=== PATIENT | male | born 1960 ===

== ENCOUNTER 2018-08-21 20:25 | Inpatient (IN) | payer BC ==
[2018-08-21 20:35] VITALS: BMI 26.9
[2018-08-21] MEDS ORDERED: Sodium Chloride 0.9% 1,000 ML IV SCH (21:00)
[2018-08-21 21:04] LABS: BASO # 0.02 K/mm3 (0.0-2.0); BASO % 0.2 % (0.0-3.0); EOS % 0.5 % (1.5-5.0); GRAN # 5.94 (1.4-6.5); GRAN % 72.7 % (50.0-68.0); HEMOGLOBIN 13.7 g/dL (14.0-18.0); LYMPH # 1.5 (1.2-3.4); LYMPH % 17.7 % (22.0-35.0); MEAN CELL VOLUME 89.1 fl (80.0-105.0); MEAN CORPUSCULAR HEMOGLOBIN 30.4 pg (25.0-35.0); MEAN CORPUSCULAR HGB CONC 34.1 g/dl (31.0-37.0); MEAN PLATELET VOLUME 11.5 fl (7.0-11.0); MONO # 0.7 (0.1-0.6); MONO % 8.9 % (1.0-6.0); RBC 4.51 10^6/uL (3.5-6.1); RED CELL DISTRIBUTION WIDTH 13.9 % (11.5-14.5); WHITE BLOOD COUNT 8.2 10^3/ul (4.5-11.0)
[2018-08-21 21:11] LABS: INR 1.08; PARTIAL THROMBOPLASTIN TIME 23.1 Seconds (25.1-36.5); PROTHROMBIN TIME 12.3 SECONDS (9.4-12.5)
[2018-08-21 21:12] LABS: ALB/GLOB RATIO 1.4 (1.1-1.8); ALBUMIN 4.4 g/dL (3.0-4.8); ALT/SGPT 32 U/L (7-56); AST/SGOT 29 U/L (17-59); BLOOD UREA NITROGEN 15 mg/dL (7-21); CALCIUM 9.5 mg/dL (8.4-10.5); GFR NON-AFRICAN AMERICAN > 60
[2018-08-21 21:24] LABS: TROPONIN I < 0.01 ng/mL
--- NOTE | 2018-08-21 21:26 | ED PDOC ---
Arrival/HPI - General Chief Complaint: Dizziness/Lightheaded Time Seen by Provider: 08/21/18 20:34 Historian: Patient - History of Present Illness Narrative History of Present Illness (Text): 08/21/18 20:40 Micah Bolanos is a 58 year old male who presents to the ED complaining of sudden onset of dizziness today after helping his son move some items. Patient reports associated nausea, and vomiting. Patient denies any fever, chills, chest pain, shortness of breath, abdominal pain, headache, or any other complaints. Symptom Onset: Sudden Symptom Course: Unchanged Activities at Onset: Light Context: Exertion Past Medical History - Provider Review Nursing Documentation Reviewed: Yes - Infectious Disease Hx of Infectious Diseases: None - Psychiatric Hx Substance Use: No - Anesthesia Hx Anesthesia: No Family/Social History - Physician Review Nursing Documentation Reviewed: Yes Family/Social History: Unknown Family HX Smoking Status: Never Smoked Hx Alcohol Use: Yes Frequency of alcohol use: Socially Hx Substance Use: No Allergies/Home Meds Allergies/Adverse Reactions: Allergies No Known Allergies Allergy (Unverified 08/21/18 20:44) Review of Systems - Physician Review All systems were reviewed & negative as marked: Yes - Review of Systems Constitutional: Normal. absent: Fevers Eyes: Normal ENT: Normal Respiratory: Normal. absent: SOB, Cough Cardiovascular: Normal. absent: Chest Pain Gastrointestinal: Nausea, Vomiting. absent: Diarrhea Genitourinary Male: Normal. absent: Dysuria, Frequency, Hematuria, Urinary Output Changes Musculoskeletal: Normal. absent: Back Pain, Neck Pain Skin: Normal Neurological: Dizziness Endocrine: Normal Hemo/Lymphatic: Normal Psychiatric: Normal Physical Exam Vital Signs Reviewed: Yes Vital Signs Temp Pulse Resp BP Pulse Ox 08/21/18 23:56 96 H 18 144/93 H 98 08/21/18 20:33 98.3 F 80 18 133/77 100 Temperature: Afebrile Blood Pressure: Normal Pulse: Regular Respiratory Rate: Normal Appearance: Positive for: Well-Appearing, Non-Toxic, Comfortable Pain Distress: None Mental Status: Positive for: Alert and Oriented X 3 - Systems Exam Head: Present: Atraumatic, Normocephalic Pupils: Present: PERRL Extroacular Muscles: Present: EOMI Conjunctiva: Present: Normal Mouth: Present: Moist Mucous Membranes Neck: Present: Normal Range of Motion Respiratory/Chest: Present: Clear to Auscultation, Good Air Exchange. No: Respiratory Distress, Accessory Muscle Use Cardiovascular: Present: Regular Rate and Rhythm, Normal S1, S2. No: Murmurs Abdomen: No: Tenderness, Distention, Peritoneal Signs Back: Present: Normal Inspection Upper Extremity: Present: Normal Inspection. No: Cyanosis, Edema Lower Extremity: Present: Normal Inspection. No: Edema Neurological: Present: GCS=15, CN II-XII Intact, Speech Normal Skin: Present: Warm, Dry, Normal Color. No: Rashes Psychiatric: Present: Alert, Oriented x 3, Normal Insight, Normal Concentration Medical Decision Making ED Course and Treatment: 08/21/18 20:40 Impression: 58 year old male presents with sudden onset of dizziness, nausea, and vomiting today. Plan: -- CT Head w/o contrast -- EKG -- CXR -- Labs, troponin -- IV fluids -- Zofran -- Reassess and disposition Progress Notes: Reviewed EKG, NSR at [address]-segment elevations or depressions, no T-wave inversions, normal intervals. 08/21/18 21:45 Chest X-ray reviewed, shows no acute processes. 08/21/18 22:50 CT Head reviewed, shows: No acute intracranial abnormality. Electronically signed on Aug 21, 2018 22:39:12 EDT by: Finesse Hernandez M.D. 08/22/18 00:49 On reassessment, patient states he wants to go home, however when he stood up from the stretched he became dizzy/nauseous and began vomiting. I advised patient to stay in the hospital, patient is agreeable with plan. will need neuro workup and mri 08/22/18 01:[address] Ricketts, who is aware and agrees with plan. Accepts pt in to her service. Pt will go to [facility] observation for intractable dizziness and intractable vomiting. Requests Dr. Jimenez on consult. - Lab Interpretations Microbiology Results: Microbiology Results 08/23/18 10:50 Blood Blood Culture - Preliminary NO GROWTH AFTER 3 DAYS 08/23/18 10:30 Blood Blood Culture - Preliminary NO GROWTH AFTER 3 DAYS Lab Results: 08/23/18 05:30 08/23/18 05:30 Lab Results 08/23/18 10:18: C-React Prot High Sens 8.20 H 08/23/18 09:30: TENZIN Screen Negative 08/23/18 09:00: ESR 15 08/23/18 05:30: TSH 3rd Generation 0.69 08/23/18 05:30: Hemoglobin A1c 5.5 08/23/18 05:30: Sodium 139, Potassium 3.8, Chloride 106, Carbon Dioxide 25, Anion Gap 12, BUN 13, Creatinine 0.8, Est GFR ( Amer) > 60, Est GFR (Non- Af Amer) > 60, Random Glucose 94, Calcium 8.8, Phosphorus 3.1, Magnesium 2.1, Total Bilirubin 0.7, AST 30, ALT 35, Alkaline Phosphatase 41, Total Protein 6.7, Albumin 3.7, Globulin 3.0, Albumin/Globulin Ratio 1.2, Triglycerides 65, Cholesterol 174, LDL Cholesterol Direct 111, HDL Cholesterol 31 08/23/18 05:30: WBC 8.9, RBC 4.43, Hgb 13.1 L, Hct 39.8 L, MCV 89.8, MCH 29.6, MCHC 32.9, RDW 13.9, Plt Count 192, MPV 11.4 H, Gran % 73.2 H, Lymph % (Auto) 16.0 L, Loup % (Auto) 10.7 H, Eos % (Auto) 0.0 L, Baso % (Auto) 0.1, Gran # 6.49, Lymph # (Auto) 1.4, Loup # (Auto) 1.0 H, Eos # (Auto) 0.0, Baso # (Auto) 0.01 08/22/18 16:11: Triglycerides 49, Cholesterol 176, LDL Cholesterol Direct 113, HDL Cholesterol 34 08/21/18 20:55: PT 12.3, INR 1.08, APTT 23.1 L 08/21/18 20:55: WBC 8.2, RBC 4.51, Hgb 13.7 L, Hct 40.2 L, MCV 89.1, MCH 30.4, MCHC 34.1, RDW 13.9, Plt Count 176, MPV 11.5 H, Gran % 72.7 H, Lymph % (Auto) 17.7 L, Loup % (Auto) 8.9 H, Eos % (Auto) 0.5 L, Baso % (Auto) 0.2, Gran # 5.94, Lymph # (Auto) 1.5, Loup # (Auto) 0.7 H, Eos # (Auto) 0.0, Baso # (Auto) 0.02 08/21/18 20:55: Sodium 139, Potassium 4.1, Chloride 104, Carbon Dioxide 24, Anion Gap 16, BUN 15, Creatinine 0.9, Est GFR ( Amer) > 60, Est GFR (Non- Af Amer) > 60, Random Glucose 129 H, Calcium 9.5, Total Bilirubin 0.6, AST 29, ALT 32, Alkaline Phosphatase 54, Troponin I < 0.01, Total Protein 7.6, Albumin 4.4, Globulin 3.2, Albumin/Globulin Ratio 1.4 I have reviewed the lab results: Yes - RAD Interpretation Radiology Orders: 08/21/18 20:44 HEAD W/O CONTRAST [CT] Stat 08/21/18 20:45 CHEST PORTABLE [RAD] Stat 08/22/18 10:53 CAROTID & VERTEBRAL DUPLEX [US] Urgent 08/22/18 10:54 BRAIN WITHOUT CONTRAST [MRI] Stat Orthopaedic Nurse: Radiologist - EKG Interpretation Interpreted by ED Physician: Yes Type: 12 lead EKG - Medication Orders Current Medication Orders: Discontinued Medications Acetaminophen (Tylenol 325mg Tab) 650 mg PO Q4H PRN PRN Reason: Pain, Mild (1-3) Amlodipine Besylate (Norvasc) 10 mg PO DAILY [facility] Last Admin: 08/25/18 10:01 Dose: 10 mg MAR Blood Pressure Document 08/25/18 10:01 SOU (Rec: 08/25/18 10:01 [email or web address] Blood Pressure Blood Pressure (100/60-150/90) 130/87 Aspirin (Aspirin Chewable) 81 mg PO DAILY [facility] Aspirin (Aspirin) 325 mg PO DAILY [facility] Last Admin: 08/25/18 10:01 Dose: 325 mg Atorvastatin Calcium (Lipitor) 20 mg PO DIN [facility] Last Admin: 08/24/18 16:07 Dose: 20 mg Dexamethasone (Decadron Inj) 10 mg IVP Q8H [facility] Last Admin: 08/23/18 05:31 Dose: 10 mg IVP Administration Document 08/23/18 05:31 AP (Rec: 08/23/18 05:32 AP [id number]) Charges for Administration # of IVP Administrations 1 Dexamethasone (Decadron Inj) 4 mg IVP ONCE ONE Stop: 08/24/18 16:01 Last Admin: 08/24/18 16:07 Dose: 4 mg IVP Administration Document 08/24/18 16:07 GG (Rec: 08/24/18 16:07 GG [id number]) Charges for Administration # of IVP Administrations 1 Enoxaparin Sodium (Lovenox) 80 mg SC Q12H RAMON; Protocol Last Admin: 08/25/18 10:01 Dose: 80 mg Subcutaneous Administrations Document 08/25/18 10:01 SOUSV (Rec: 08/25/18 10:01 SOUSV B [id number]) Injection Site MAR Injection Site Left Abdomen Charges for Administration # of Subcutaneous Administrations 1 Sodium Chloride (Sodium Chloride 0.9%) 1,000 mls @ 80 mls/hr IV .[id number] RAMON Last Admin: 08/21/18 20:54 Dose: 80 mls/hr eMAR Start Stop Document 08/21/18 20:54 CNR (Rec: 08/21/18 20:55 CNR [id number]) Intravenous Solution Start Date 08/21/18 Start Time 20:55 End Date 08/22/18 End time 01:39 Total Infusion Time 284 Sodium Chloride (Sodium Chloride 0.9%) 1,000 mls @ 100 mls/hr IV .Q10H STA Stop: 08/22/18 11:11 Last Admin: 08/22/18 01:39 Dose: 100 mls/hr eMAR Start Stop Document 08/22/18 01:39 CNR (Rec: 08/22/18 01:39 CNR [id number]) Intravenous Solution Start Date 08/22/18 Start Time 01:39 Dexamethasone 2 mg/ Sodium (Chloride) 50.5 mls @ 150 mls/hr IV ONCE ONE Stop: 08/22/18 11:34 Last Admin: 08/22/18 12:21 Dose: 150 mls/hr eMAR Start Stop Document 08/22/18 12:21 LO (Rec: 08/22/18 12:21 LO [id number]) Intravenous Solution Start Date 08/22/18 Start Time 12:21 Meclizine HCl (Antivert) 25 mg PO STAT STA Stop: 08/21/18 23:48 Last Admin: 08/21/18 23:54 Dose: 25 mg Meclizine HCl (Antivert) 25 mg PO TID RAMON Last Admin: 08/23/18 09:17 Dose: 25 mg Meclizine HCl (Antivert) 25 mg PO TID PRN PRN Reason: Dizziness Metoclopramide HCl (Reglan) 10 mg IVP ONCE ONE Stop: 08/21/18 22:38 Last Admin: 08/21/18 22:50 Dose: 10 mg IVP Administration Document 08/21/18 22:50 CNR (Rec: 08/21/18 22:50 CNR [id number]) Charges for Administration # of IVP Administrations 1 Ondansetron HCl (Zofran Inj) 4 mg IVP STAT STA Stop: 08/21/18 20:47 Last Admin: 08/21/18 20:55 Dose: 4 mg IVP Administration Document 08/21/18 20:55 CNR (Rec: 08/21/18 20:55 CNR [id number]) Charges for Administration # of IVP Administrations 1 Ondansetron HCl (Zofran Inj) 4 mg IVP Q6H PRN PRN Reason: Nausea/Vomiting Last Admin: 08/22/18 08:26 Dose: 4 mg IVP Administration Document 08/22/18 08:26 LO (Rec: 08/22/18 08:27 LO [id number]) Charges for Administration # of IVP Administrations 1 Pantoprazole Sodium (Protonix Inj) 40 mg IVP ONCE STA Stop: 08/22/18 01:14 Last Admin: 08/22/18 01:39 Dose: 40 mg IVP Administration Document 08/22/18 01:39 CNR (Rec: 08/22/18 01:39 CNR [id number]) Charges for Administration # of IVP Administrations 1 Pantoprazole Sodium (Protonix Inj) 40 mg IVP DAILY RAMON Last Admin: 08/23/18 09:17 Dose: 40 mg IVP Administration Document 08/23/18 09:17 VS (Rec: 08/23/18 09:17 VS [id number]) Charges for Administration # of IVP Administrations 1 Pantoprazole Sodium (Protonix Ec Tab) 40 mg PO 0600 RAMON Last Admin: 08/24/18 05:09 Dose: 40 mg Warfarin Sodium (Coumadin) 6 mg PO 1800 RAMON; Protocol Last Admin: 08/24/18 18:58 Dose: 6 mg - Mindi Statement The provider has reviewed the documentation as recorded by the Mindi Caceres All medical record entries made by the Vickiibdanilo were at my direction and personally dictated by me. I have reviewed the chart and agree that the record accurately reflects my personal performance of the history, physical exam, medical decision making, and the department course for this patient. I have also personally directed, reviewed, and agree with the discharge instructions and disposition. Disposition/Present on Arrival - Present on Arrival Any Indicators Present on Arrival: No History of DVT/PE: No History of Uncontrolled Diabetes: No Urinary Catheter: No History of Decub. Ulcer: No History Surgical Site Infection Following: None - Disposition Have Diagnosis and Disposition been Completed?: Yes Diagnosis: Intractable vomiting Disposition: HOSPITALIZED Disposition Time: 00:49 Patient Problems: Current Active Problems Problem Status Onset Hypercoagulable state Acute Postoperative hemorrhage of skin following non-dermatologic procedure Acute Condition: FAIR
[2018-08-22] MEDS ORDERED: Sodium Chloride 0.9% 1,000 ML IV STA (01:12)
--- NOTE | 2018-08-22 08:34 | RAD ---
Date of service: 08/21/2018 HISTORY: dizzy COMPARISON: No prior. FINDINGS: LUNGS: No active pulmonary disease. PLEURA: No significant pleural effusion identified, no pneumothorax apparent. CARDIOVASCULAR: Normal. OSSEOUS STRUCTURES: No significant abnormalities. VISUALIZED UPPER ABDOMEN: Normal. OTHER FINDINGS: None. IMPRESSION: No interval acute cardiopulmonary disease appreciated.
--- NOTE | 2018-08-22 08:43 | CT ---
Date of service: 08/21/2018 PROCEDURE: CT HEAD WITHOUT CONTRAST. HISTORY: dizzy COMPARISON: None available. TECHNIQUE: Axial computed tomography images were obtained through the head/brain without intravenous contrast. Supplemental Coronal and Sagittal projectections created and reviewed. Radiation dose: Total exam DLP = 9112.18 mGy-cm. This CT exam was performed using one or more of the following dose reduction techniques: Automated exposure control, adjustment of the mA and/or kV according to patient size, and/or use of iterative reconstruction technique. FINDINGS: HEMORRHAGE: No intracranial hemorrhage. BRAIN: No mass effect or edema. No atrophy or chronic microvascular ischemic changes. VENTRICLES: Unremarkable. No hydrocephalus. CALVARIUM: Unremarkable. PARANASAL SINUSES: Unremarkable as visualized. No significant inflammatory changes. MASTOID AIR CELLS: Unremarkable as visualized. No inflammatory changes. OTHER FINDINGS: None. IMPRESSION: Concordant results (preliminary interpretation) provided by COLTON TORRES. Procedure Completed: 21:55 Preliminary (vRad) Report: Dictated and Authenticated: 22:39 Final Interpretation: 08:41. August 22, 2018.
--- NOTE | 2018-08-22 10:05 | CARD ---
APPROVED REPORT Date of service: 08/21/2018 EKG Measurement Heart [id number] <Conclusion> Normal sinus rhythm Normal ECG
[2018-08-22] MEDS ORDERED: Dexamethasone 2 MG in Sodium Chloride 0.9% 50 ML IV ONE (11:14)
--- NOTE | 2018-08-22 13:08 | CON ---
DATE: 08/22/2018 HISTORY OF PRESENT ILLNESS: A 58-year-old male, came with the complaint of sudden onset of dizziness and came to hospital. The patient has the nausea, vomiting. No spinning sensation. No double vision. Called to evaluate the patient. ALLERGIES: NO KNOWN DRUG ALLERGY. REVIEW OF SYSTEMS: Ten-point review of systems negative except dizziness. PHYSICAL EXAMINATION: VITAL SIGNS: Blood pressure 133/77. HEENT: Normocephalic, atraumatic. NECK: Supple. NEUROLOGIC: Alert, awake, orientated x3. No aphasia. Cranial nerves II through XII were tested. Pupils reactive. EOM intact. Visual field full. No facial asymmetry. Tongue midline. Motor examination: Moves all the extremities spontaneously. Strength 5/5. Tone normal. Deep tendon reflexes 1+. Both plantars are downgoing. Sensory appears intact. Cerebellar, gait deferred. IMPRESSION: A 58-year-old male, who presented to hospital with sudden onset of dizziness with nausea, vomiting. CAT scan of the head was done, which was reported negative. We will do MRI of the head with and without Gadolinium and carotid Doppler. The patient is on Zofran. Workup in progress. We will followup. Jim Jimenez MD
--- NOTE | 2018-08-22 13:30 | CP.PCM.CON ---
<JannieGinny gonsalezi - Last Filed: 08/22/18 14:44> History of Present Illness - History of Present Illness History of Present Illness: ENT consult note for Dr. Marcano Patient is a 58 year old male with past medical history of GERD presenting with intractable dizziness. Patient states that he was lifting boxes with his son yesterday when the dizziness started. He also complains of nausea, vomiting, and chronic tinnitus. He describes the dizziness as if the room is spinning. Patient admits to have seen Dr. Galloway several months ago for an earache and got his earwax removed. 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 Patient denies any changes in vision, falls, loss of consciousness, seizures, or muscle weakness. Patient further denies fevers, c hills, shortness of breath, chest pain, abdominal pain, diarrhea, or urinary symptoms. Otherwise, 12 point review of system was negative. PMH: GERD Past surgical history: Tonsillectomy Social History: occasional cigar smoker and drinks alcohol socially. Denies drug use. 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 Allergies:NKDA PMD: Dr. Ricketts Past Patient History - Infectious Disease Hx of Infectious Diseases: None - Past Social History Smoking Status: Never Smoked - CARDIAC Hx Cardiac Disorders: No - PULMONARY Hx Respiratory Disorders: No - NEUROLOGICAL Hx Neurological Disorder: No - HEENT Hx HEENT Problems: No - RENAL Hx Chronic Kidney Disease: No - ENDOCRINE/METABOLIC Hx Endocrine Disorders: No - HEMATOLOGICAL/ONCOLOGICAL Hx Blood Disorders: No - INTEGUMENTARY Hx Dermatological Problems: No - MUSCULOSKELETAL/RHEUMATOLOGICAL Hx Musculoskeletal Disorders: No Hx Falls: No - GASTROINTESTINAL Hx Gastrointestinal Disorders: No - GENITOURINARY/GYNECOLOGICAL Hx Genitourinary Disorders: No - PSYCHIATRIC Hx Substance Use: No - SURGICAL HISTORY Hx Surgeries: No - ANESTHESIA Hx Anesthesia: No Meds Home Medications: Home Medication List Medication Instructions Recorded Confirmed Type Meclizine [Antivert] 25 mg PO QID #12 tab 08/22/18 Rx Ondansetron ODT [Zofran ODT] 8 mg PO TID PRN #12 odt 08/22/18 Rx Allergies/Adverse Reactions: Allergies Allergy/AdvReac Type Severity Reaction Status Date / Time No Known Allergies Allergy Unverified 08/21/18 20:44 - Medications Medications: Current Medications Acetaminophen (Tylenol 325mg Tab) 650 mg PO Q4H PRN PRN Reason: Pain, Mild (1-3) Meclizine HCl (Antivert) 25 mg PO TID RAMON Ondansetron HCl (Zofran Inj) 4 mg IVP Q6H PRN PRN Reason: Nausea/Vomiting Last Admin: 08/22/18 08:26 Dose: 4 mg Pantoprazole Sodium (Protonix Inj) 40 mg IVP DAILY [facility] Last Admin: 08/22/18 11:20 Dose: 40 mg Physical Exam - Constitutional Appears: No Acute Distress, Other (Appears uncomfortable) - Head Exam Head Exam: ATRAUMATIC, NORMOCEPHALIC - Eye Exam Eye Exam: Normal appearance. absent: Nystagmus - ENT Exam ENT Exam: Mucous Membranes Dry, Normal External Ear Exam, TM's Normal Bilaterally. absent: Mucous Membranes Moist - Neck Exam Neck exam: Positive for: Normal Inspection. Negative for: Lymphadenopathy - Respiratory Exam Respiratory Exam: absent: Accessory Muscle Use, Respiratory Distress - Cardiovascular Exam Cardiovascular Exam: absent: Bradycardia, Tachycardia - GI/Abdominal Exam GI & Abdominal Exam: Soft. absent: Distended, Guarding, Tenderness - Extremities Exam Extremities exam: Positive for: normal inspection - Neurological Exam Neurological exam: Alert, CN II-XII Intact, Oriented x3 Additional comments: Nimo-Hallpike test was negative for nystagmus and vertigo - Psychiatric Exam Psychiatric exam: Normal Affect, Normal Mood - Skin Skin Exam: Dry, Intact, Normal Color, Warm Results - Vital Signs Recent Vital Signs: Last Vital Signs Temp 98.2 F 08/22/18 06:00 Pulse 76 08/22/18 06:00 Resp 18 08/22/18 06:00 BP 119/74 08/22/18 06:00 Pulse Ox 97 08/22/18 06:00 - Labs Result Diagrams: 08/21/18 20:55 08/21/18 20:55 Labs: Laboratory Results - last 24 hr 08/21/18 08/21/18 08/21/18 20:55 20:55 20:55 WBC 8.2 RBC 4.51 Hgb 13.7 L Hct 40.2 L MCV 89.1 MCH 30.4 MCHC 34.1 RDW 13.9 Plt Count 176 MPV 11.5 H Gran % 72.7 H Lymph % (Auto) 17.7 L Wilkes % (Auto) 8.9 H Eos % (Auto) 0.5 L Baso % (Auto) 0.2 Gran # 5.94 Lymph # (Auto) 1.5 Wilkes # (Auto) 0.7 H Eos # (Auto) 0.0 Baso # (Auto) 0.02 PT 12.3 INR 1.08 APTT 23.1 L Sodium 139 Potassium 4.1 Chloride 104 Carbon Dioxide 24 Anion Gap 16 BUN 15 Creatinine 0.9 Est GFR ( Amer) > 60 Est GFR (Non-Af Amer) > 60 Random Glucose 129 H Calcium 9.5 Total Bilirubin 0.6 AST 29 ALT 32 Alkaline Phosphatase 54 Troponin I < 0.01 Total Protein 7.6 Albumin 4.4 Globulin 3.2 Albumin/Globulin Ratio 1.4 Assessment & Plan - Assessment and Plan (Free Text) Assessment: Patient is a 58 year old male with PMH of GERD presenting with intractable dizziness. Plan: - Continue with decadron IV. - Continue with zofran and meclizine - Outpatient ENT follow up for VNG testing. Discussed case with Dr. Jeet Hendrickson DO PGY-1 <Ramana Marcano - Last Filed: 08/23/18 14:18> Meds - Medications Medications: Current Medications Acetaminophen (Tylenol 325mg Tab) 650 mg PO Q4H PRN PRN Reason: Pain, Mild (1-3) Amlodipine Besylate (Norvasc) 10 mg PO DAILY [facility] Last Admin: 08/23/18 11:19 Dose: 10 mg Aspirin (Aspirin) 325 mg PO DAILY [facility] Last Admin: 08/23/18 09:17 Dose: 325 mg Atorvastatin Calcium (Lipitor) 20 mg PO DIN [facility] Last Admin: 08/22/18 17:39 Dose: 20 mg Meclizine HCl (Antivert) 25 mg PO TID PRN PRN Reason: Dizziness Ondansetron HCl (Zofran Inj) 4 mg IVP Q6H PRN PRN Reason: Nausea/Vomiting Last Admin: 08/22/18 08:26 Dose: 4 mg Pantoprazole Sodium (Protonix Inj) 40 mg IVP DAILY [facility] Last Admin: 08/23/18 09:17 Dose: 40 mg Results - Vital Signs Recent Vital Signs: Last Vital Signs Temp 97.9 F 08/23/18 06:00 Pulse 64 08/23/18 09:41 Resp 20 08/23/18 06:00 BP 156/96 H 08/23/18 11:19 Pulse Ox 96 08/23/18 09:41 - Labs Result Diagrams: 08/23/18 05:30 08/23/18 05:30 Labs: Laboratory Results - last 24 hr 08/22/18 08/23/18 08/23/18 16:11 05:30 05:30 WBC 8.9 RBC 4.43 Hgb 13.1 L Hct 39.8 L MCV 89.8 MCH 29.6 MCHC 32.9 RDW 13.9 Plt Count 192 MPV 11.4 H Gran % 73.2 H Lymph % (Auto) 16.0 L Wilkes % (Auto) 10.7 H Eos % (Auto) 0.0 L Baso % (Auto) 0.1 Gran # 6.49 Lymph # (Auto) 1.4 Wilkes # (Auto) 1.0 H Eos # (Auto) 0.0 Baso # (Auto) 0.01 ESR Sodium 139 Potassium 3.8 Chloride 106 Carbon Dioxide 25 Anion Gap 12 BUN 13 Creatinine 0.8 Est GFR ( Amer) > 60 Est GFR (Non-Af Amer) > 60 Random Glucose 94 Hemoglobin A1c Calcium 8.8 Phosphorus 3.1 Magnesium 2.1 Total Bilirubin 0.7 AST 30 ALT 35 Alkaline Phosphatase 41 Total Protein 6.7 Albumin 3.7 Globulin 3.0 Albumin/Globulin Ratio 1.2 Triglycerides 49 65 Cholesterol 176 174 LDL Cholesterol Direct 113 111 HDL Cholesterol 34 31 TSH 3rd Generation 08/23/18 08/23/18 08/23/18 05:30 05:30 09:00 WBC RBC Hgb Hct MCV MCH MCHC RDW Plt Count MPV Gran % Lymph % (Auto) Wilkes % (Auto) Eos % (Auto) Baso % (Auto) Gran # Lymph # (Auto) Wilkes # (Auto) Eos # (Auto) Baso # (Auto) ESR 15 Sodium Potassium Chloride Carbon Dioxide Anion Gap BUN Creatinine Est GFR ( Amer) Est GFR (Non-Af Amer) Random Glucose Hemoglobin A1c 5.5 Calcium Phosphorus Magnesium Total Bilirubin AST ALT Alkaline Phosphatase Total Protein Albumin Globulin Albumin/Globulin Ratio Triglycerides Cholesterol LDL Cholesterol Direct HDL Cholesterol TSH 3rd Generation 0.69 Assessment & Plan - Assessment and Plan (Free Text) Assessment: MRI revealed embolic CVA Current treatment for embolic stroke (Central Vertigo) will reevaluate as outpatient should vertigo persist .
--- NOTE | 2018-08-22 14:08 | MRI ---
Date of service: 08/22/2018 PROCEDURE: MRI BRAIN WITHOUT CONTRAST HISTORY: severe dizziness COMPARISON: Noncontrast head CT 08/21/2018. TECHNIQUE: Multiplanar, multisequence MR images of the brain were obtained without intravenous contrast enhancement. FINDINGS: HEMORRHAGE: None DWI: Multifocal areas of restricted diffusion are small but widespread in the posterior fossa including the bilateral cerebellar hemispheres peripherally as well as limited vermian infarction, bilateral occipital lobes posteriorly and right thalamus indicating showing of embolic material across the bilateral MEAL MILLER and deep right MCA circulation. BRAIN PARENCHYMA: Limited chronic microangiopathy is identified within the bilateral frontal parietal and temporal lobes. Normal sulci and cisterns. No significant mass effect at this time including the basilar cisterns. Trace periventricular related chronic microangiopathy also evident. VENTRICLES: Unremarkable. No hydrocephalus. CRANIUM: Unremarkable. ORBITS: Grossly unremarkable. PARANASAL SINUSES/MASTOIDS: Clear VASCULAR SYSTEM: Skull base flow voids intact. OTHER FINDINGS: None. IMPRESSION: A numerous small infarcts are identified at the bilateral cerebellar hemispheres, right thalamus and bilateral occipital lobes compatible with embolic infarction process affecting the bilateral MEAL MILLER and deep right MCA branches. No significant mass effect. Limited chronic microangiopathy identified. Findings discussed with Dr. Ricketts with written down and read back verification 08/22/2018 2 o'clock p.m..
--- NOTE | 2018-08-22 14:52 | CP.PCM.PN ---
Subjective - Date & Time of Evaluation Date of Evaluation: 08/22/18 Time of Evaluation: 14:50 - Subjective Subjective: Patient evaluated bedside for NIHSS Stroke Scale.Patient states he feels weak and nauseas, denies any other complaints. Objective - Vital Signs/Intake and Output Vital Signs (last 24 hours): Temp Pulse Resp BP Pulse Ox 98.2 F 76 18 119/74 97 08/22/18 06:00 08/22/18 06:00 08/22/18 06:00 08/22/18 06:00 08/22/18 06:00 - Medications Medications: Current Medications Acetaminophen (Tylenol 325mg Tab) 650 mg PO Q4H PRN PRN Reason: Pain, Mild (1-3) Aspirin (Aspirin) 325 mg PO DAILY [facility] Atorvastatin Calcium (Lipitor) 20 mg PO DIN [facility]ON Meclizine HCl (Antivert) 25 mg PO TID [facility] Ondansetron HCl (Zofran Inj) 4 mg IVP Q6H PRN PRN Reason: Nausea/Vomiting Last Admin: 08/22/18 08:26 Dose: 4 mg Pantoprazole Sodium (Protonix Inj) 40 mg IVP DAILY [facility] Last Admin: 08/22/18 11:20 Dose: 40 mg - Labs Labs: 08/21/18 20:55 08/21/18 20:55 PT 12.3 SECONDS (9.4-12.5) 08/21/18 20:55 INR 1.08 08/21/18 20:55 APTT 23.1 Seconds (25.1-36.5) L 08/21/18 20:55 - Constitutional Appears: Non-toxic, No Acute Distress - Head Exam Head Exam: ATRAUMATIC, NORMAL INSPECTION, NORMOCEPHALIC - Eye Exam Eye Exam: EOMI, Normal appearance Pupil Exam: NORMAL ACCOMODATION - ENT Exam ENT Exam: Mucous Membranes Moist - Respiratory Exam Respiratory Exam: Clear to Ausculation Bilateral, NORMAL BREATHING PATTERN - Cardiovascular Exam Cardiovascular Exam: REGULAR RHYTHM, +S1, +S2 - GI/Abdominal Exam GI & Abdominal Exam: Soft - Neurological Exam Neurological Exam: Alert, Awake, Oriented x3 Neuro motor strength exam: Left Upper Extremity: 5, Right Upper Extremity: 5, Left Lower Extremity: 5, Right Lower Extremity: 5 Assessment and Plan - Assessment and Plan (Free Text) Plan: NIHSS Stroke Scale: 0
[2018-08-22 16:26] LABS: HDL CHOLESTEROL 34 mg/dL (29-60)
[2018-08-22 16:36] LABS: LDL CHOLESTEROL 113 mg/dL (0-129)
--- NOTE | 2018-08-22 17:19 | CON ---
DATE: 08/22/2018 Physician in addition with Neurology consultation done by Dr. Tony Pavon. Micah Bolanos is a 58-year-old man with history of hypertension who came in for intractable dizziness, found to have on the MRI of brain which was reviewed by me, numerous small infarcts bilateral cerebellar hemispheres, right thalamus and bilateral occipital lobes compatible with embolic infarction affecting the bilateral ABLE SEAMAN and deep right MCA branches. Carotid Dopplers done and results are pending. He would need to be on anticoagulation, most likely Eliquis 2.5 mg p.o. b.i.d. which can be started 24-48 hours after the onset of the acute stroke. Currently, he is having dizziness and headache, but no focal neurological deficits seen. He is on aspirin 325, currently Lipitor of 20, we will need to be on Lipitor of 80 mg for stroke prevention in addition to an anticoagulation like Eliquis. He will also need Cardiology for possible loop recorder and echocardiogram. He denies any illicit drug use or smoking. No EtOH abuse. We will need Hematology to evaluate for hypercoagulable workup and continue current present medical management, PT/OT assessment. Camden Jimenez MD
--- NOTE | 2018-08-22 17:21 | US ---
PROCEDURE: Bilateral carotid artery duplex ultrasound HISTORY: Carotid stenosis syncope PHYSICIAN(S): Adam Anne MD. TECHNIQUE: Duplex sonography and color-flow Doppler were used to evaluate the carotid bifurcations and limited segments of the vertebral arteries bilaterally. FINDINGS: There is mild smooth heterogeneous plaque noted at the carotid bifurcations bilaterally. The peak systolic velocity in the proximal right internal carotid artery is 46 cm/sec. This corresponds to a 20 to 39% proximal right ICA stenosis. Normal systolic velocities are noted in the proximal right external carotid artery. There is antegrade flow in the right vertebral artery. The peak systolic velocity in the proximal left internal carotid artery is 75 cm/sec. This corresponds to a 20 to 39% proximal left ICA stenosis. Normal systolic velocities are noted in the proximal left external carotid artery. There is antegrade flow in the left vertebral artery. IMPRESSION: 1. Bilateral 20-39% proximal ICA stenoses. 2. Antegrade flow in both vertebral arteries.
--- NOTE | 2018-08-22 20:21 | HP ---
DATE OF EXAM: 08/22/2018 HISTORY OF PRESENT ILLNESS: The patient is 58 years old, known to me from office practice. The patient states that his son was moving out, he was helping him to move out; when he was riding back home, he felt very dizzy and felt very nauseous since yesterday, so he had multiple episodes of vomiting, so he came to emergency room for further evaluation. Denies any headache. Complaining of feeling nauseous, light bothers. Has no appetite. No headache, no fever or chills. PAST MEDICAL HISTORY: Unremarkable. ALLERGIES: NOT ALLERGIC TO ANY MEDICATION. MEDICATIONS AT HOME: He was taking meclizine with no relief. SOCIAL HISTORY: He is , lives with his . Socially drinks. Denies smoking. REVIEW OF SYSTEMS: Significant for intractable nausea, especially when he moves his head and also complained of feeling nauseous. PHYSICAL EXAMINATION GENERAL: He is awake and alert, able to communicate. VITAL SIGNS: He is afebrile, pulse 76, respirations 18, blood pressure 119/74. LUNGS: Bilateral good airflow. No rhonchi or crackles. HEART: S1 and S2 audible. ABDOMEN: Soft, nontender. No rebound. No guarding. NEUROLOGICAL: The patient is awake and alert, able to communicate. Moves all extremities. Unable to move his head because of dizziness. LABORATORY DATA: WBC is 8.2, hemoglobin 13, hematocrit 40, platelets 176. PT 12.3. INR 1.08. Chemistry; sodium 139, potassium 4.1, chloride 104, CO2 of 24, BUN 15, creatinine 0.9, blood sugar of 129. LFTs are within normal limits. EKG shows normal sinus rhythm and normal EKG. CT scan of the head is unremarkable. X-ray of the chest is unremarkable. ASSESSMENT: 1. Intractable vomiting. 2. Severe vertigo. PLAN: We will continue the patient on meclizine. He has been started on dexamethasone. He is on Protonix. We will get carotid Doppler and MRI. Start him on liquid diet and Zofran as needed. We will follow up in the a.m. Carri Ricketts MD [facility] # [id number]
--- NOTE | 2018-08-23 00:41 | CON ---
DATE: 08/22/2018 CONSULTATION SERVICE: CARDIOLOGY DICTATING PHYSICIAN: Lan Trejo MD REASON FOR CONSULTATION: Embolic stroke, cardiac evaluation. 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 Denies any chest pain, denies any shortness of breath, denies any palpitation. That happened yesterday while he was lifting some boxes with his son. PAST MEDICAL HISTORY: Significant for complaint of chronic tinnitus, history of seen Dr. Galloway several months ago for ear ache and got the ear wax removed. PAST SURGICAL HISTORY: Significant for ear wax removed as mentioned above, tonsillectomy. SOCIAL HISTORY: Denies any smoking. Denies any history of alcohol abuse. Occasionally smokes cigar. Socially drinks. No history of substance abuse. 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 ALLERGIES: NO KNOWN DRUG ALLERGIES. CURRENT MEDICATIONS: None. REVIEW OF SYSTEMS: As per HPI. PHYSICAL EXAMINATION: VITAL SIGNS: Height of the patient is 5 feet 9 inches, weight of the patient is 185 pounds, body mass index 27 kg/sq m. Temperature afebrile, heart rate 64, blood pressure 119/74. HEENT: PERRLA. Extraocular muscles intact. NECK: Supple. No carotid bruits. No thyromegaly. CHEST: Clear to auscultation. HEART: S1 and S2 regular. ABDOMEN: Soft. EXTREMITIES: Clubbing and cyanosis negative. LABORATORY DATA: EKG shows normal sinus, within normal limits, heart rate 75. No acute ST-T changes noted. CAT scan of the head done yesterday at 9 p.m. that shows essentially unremarkable. Patient's later MRI of the brain done today around 11 o'clock that showed numerous small infarct identified in the bilateral cerebellar hemisphere, right thalamus and bilateral occipital lobe compatible with embolic infarction process, affecting the bilateral MED[employer] PROFESSOR and deep right middle cerebellar artery branch. Blood workup; WBC 8.3, hemoglobin 13.7, hematocrit 40.2, platelet count 176. Chemistry shows sodium 139, potassium 4, chloride 104, carbon dioxide 24, anion gap of 16, BUN 15, creatinine 0.9. Glucose 129, troponin 0.01. IMPRESSION: A 58-year-old male with no significant patient medical history except history of some chronic tinnitus, seen in the past Dr. Galloway, admitted with history of dizziness after lifting the box; nausea; vomiting. CAT scan was negative, but MRI shows multiple embolic stroke. RECOMMENDATIONS: Lipid profile, TSH, hemoglobin A1c. We will get echo with a bubble study to rule out patent foramen ovale. I will also put Holter, if nothing was rejected, can see the loop recorder to rule out any occult arrhythmia. Neuro workup is in progress. We will follow with you. Thank you, Dr. Ricketts, for providing us the opportunity in taking care of the patient, Micah Bolanos. Lan Trejo MD
[2018-08-23 06:29] LABS: BASO # 0.01 K/mm3 (0.0-2.0); BASO % 0.1 % (0.0-3.0); GRAN # 6.49 (1.4-6.5); GRAN % 73.2 % (50.0-68.0); HEMOGLOBIN 13.1 g/dL (14.0-18.0); LYMPH # 1.4 (1.2-3.4); MEAN CELL VOLUME 89.8 fl (80.0-105.0); MEAN CORPUSCULAR HEMOGLOBIN 29.6 pg (25.0-35.0); MEAN CORPUSCULAR HGB CONC 32.9 g/dl (31.0-37.0); MEAN PLATELET VOLUME 11.4 fl (7.0-11.0); MONO % 10.7 % (1.0-6.0); RBC 4.43 10^6/uL (3.5-6.1); RED CELL DISTRIBUTION WIDTH 13.9 % (11.5-14.5); WHITE BLOOD COUNT 8.9 10^3/ul (4.5-11.0)
[2018-08-23 06:48] LABS: ALB/GLOB RATIO 1.2 (1.1-1.8); ALBUMIN 3.7 g/dL (3.0-4.8); ALT/SGPT 35 U/L (7-56); AST/SGOT 30 U/L (17-59); BLOOD UREA NITROGEN 13 mg/dL (7-21); CALCIUM 8.8 mg/dL (8.4-10.5); GFR NON-AFRICAN AMERICAN > 60; HDL CHOLESTEROL 31 mg/dL (29-60)
[2018-08-23 06:50] LABS: LDL CHOLESTEROL 111 mg/dL (0-129)
--- NOTE | 2018-08-23 08:36 | CP.PCM.PN ---
Subjective - Date & Time of Evaluation Date of Evaluation: 08/23/18 Time of Evaluation: 06:40 - Subjective Subjective: Awake, no distress Reason for consultation and follow up:Cardiac evaluation of sudden dizziness, embolic stroke Seen and examined by me and Dr. Trejo Objective - Vital Signs/Intake and Output Vital Signs (last 24 hours): Temp Pulse Resp BP Pulse Ox 98.4 F 64 20 142/92 H 99 08/22/18 16:37 08/22/18 16:37 08/22/18 16:37 08/22/18 16:37 08/22/18 16:37 Intake and Output: 08/23/18 08/23/18 06:59 18:59 Intake Total 120 Output Total 800 Balance -680 - Medications Medications: Current Medications Acetaminophen (Tylenol 325mg Tab) 650 mg PO Q4H PRN PRN Reason: Pain, Mild (1-3) Aspirin (Aspirin) 325 mg PO DAILY [facility] Last Admin: 08/22/18 14:53 Dose: 325 mg Atorvastatin Calcium (Lipitor) 20 mg PO DIN [facility] Last Admin: 08/22/18 17:39 Dose: 20 mg Dexamethasone (Decadron Inj) 10 mg IVP Q8H [facility] Last Admin: 08/23/18 05:31 Dose: 10 mg Meclizine HCl (Antivert) 25 mg PO TID [facility] Last Admin: 08/22/18 17:40 Dose: 25 mg Ondansetron HCl (Zofran Inj) 4 mg IVP Q6H PRN PRN Reason: Nausea/Vomiting Last Admin: 08/22/18 08:26 Dose: 4 mg Pantoprazole Sodium (Protonix Inj) 40 mg IVP DAILY [facility] Last Admin: 08/22/18 11:20 Dose: 40 mg - Labs Labs: 08/23/18 05:30 08/23/18 05:30 PT 12.3 SECONDS (9.4-12.5) 08/21/18 20:55 INR 1.08 08/21/18 20:55 APTT 23.1 Seconds (25.1-36.5) L 08/21/18 20:55 - Constitutional Appears: No Acute Distress - Head Exam Head Exam: NORMOCEPHALIC - Eye Exam Eye Exam: Normal appearance - ENT Exam ENT Exam: Mucous Membranes Moist - Respiratory Exam Respiratory Exam: Clear to Ausculation Bilateral, NORMAL BREATHING PATTERN - Cardiovascular Exam Cardiovascular Exam: REGULAR RHYTHM, +S1, +S2 - GI/Abdominal Exam GI & Abdominal Exam: Soft, Normal Bowel Sounds Additional comments: denies nausea and vomiting - Extremities Exam Extremities Exam: Normal Capillary Refill - Neurological Exam Neurological Exam: Alert, Awake, Oriented x3 - Psychiatric Exam Psychiatric exam: Normal Affect - Skin Skin Exam: Dry, Warm Assessment and Plan - Assessment and Plan (Free Text) Assessment: A 58 year old male who came in to the ER due sudden onset of dizziness associated with nausea and vomiting. Denies chest pain or shortness of breath. He was helping his son move some items. No significant medical history except chronic tinnitus and was seen by Dr. Galloway. MRI of brain shows multiple embolic stroke. Cardiac consult for possible insertion of loop recorder to rule out for any arrhythmias. Will also order Echo to evaluate LV function rule out patent foramen ovale. Carotid studies unremarkable. Plan: For insertion of loop recorder today Keep NPO except medications For Echo today to evaluate LV function and rule out patent foramen ovale Heart rate and blood pressure stable TSH normal ASA 325 mg daily,Lipitor 20 mg daily,Decadron 10 mg every 8 hours Antivert 25m g TID Neuro on consult, work up in progress Continue current treatment Continue current medications Fall precaution Will start Eliquis after insertion of loop recorder Will follow up Plan and treatment discussed with Dr. Trejo
--- NOTE | 2018-08-23 10:44 | CON ---
DATE: 08/23/2018 REASON FOR CONSULTATION: Embolic stroke. HISTORY OF PRESENT ILLNESS: Mr. Bolanos is a 58-year-old male, presented to the ED with sudden onset of dizziness and lightheadedness. No nausea, no vomiting, no fever, no cough with expectoration. MRI of the brain showed embolic stroke multiple in bilateral posterior cerebral artery and right middle cerebral artery. He does not have cardiac history, no prior history of stroke. PAST MEDICAL HISTORY: No history of substance abuse, no history of smoking. FAMILY HISTORY: Noncontributory. No family history of stroke. ALLERGIES: NO KNOWN DRUG ALLERGIES. PERSONAL HISTORY: Never smoked. No history of alcohol abuse. REVIEW OF SYSTEMS: As per HPI. Rest of 12-point review of systems is reviewed and negative. PHYSICAL EXAMINATION GENERAL: Comfortable in bed, in no acute distress. VITAL SIGNS: Temperature 98.3, heart rate 80 per minute, blood pressure 130/77, pulse ox is 98% on room air. HEENT: No pallor. NECK: No lymphadenopathy. CHEST: Air entry present and equal bilaterally. No added sounds. CARDIOVASCULAR: S1 and S2 normal. No murmur, no gallop. ABDOMEN: Soft, nontender. No hepatosplenomegaly. EXTREMITIES: No edema. SKIN: No petechiae. No rash. NEUROLOGIC: Alert and oriented x3. No focal, sensory, or motor deficit. LABORATORY DATA: White count 8.2, hemoglobin 13.7, hematocrit 40.2, platelets 176. Sodium of 139, potassium of 4.1, BUN 15, creatinine of 0.9, glucose 129. CURRENT MEDICATIONS: Tylenol 650 every 4 hours p.r.n., aspirin 325 mg daily, Lipitor 20 mg daily, Decadron 10 mg every 8 hours, Antivert 25 mg p.o. t.i.d., Zofran p.r.n., Protonix 40 mg IV daily. ASSESSMENT AND PLAN: 1. Embolic stroke. 2. Lightheadedness, dizziness. 3. Vertigo. He developed acute embolic stroke. Cardiac workup is in progress. Dr. Trejo's note reviewed. Bubble study will be done including echocardiography and Holter monitoring. Source of emboli needs to be worked on. No signs of deep venous thrombosis. No prior history of deep venous thrombosis. No positive family history of stroke. Hypercoagulable workup ordered. TENZIN, factor V Leiden, lupus anticoagulant, MTHFR gene mutation, prothrombin gene mutation, protein C antigen and protein S antigen activity and level, antiphospholipid antibody panel ordered. He needs to be anticoagulated. We will start from tomorrow on Lovenox followed by Coumadin, newer anticoagulation are an option, but because of non-availability of antidote for them, long-term anticoagulation with them can be risky. Safest anticoagulation is Coumadin which has easy reversible agent available universally. Depending on the workup, we will provide further recommendation discussed with the patient at length. Thank you, Dr. Ricketts, for allowing us to participate in Mr. Bolanos's care. Lin Rudolph MD
--- NOTE | 2018-08-23 12:38 | PN ---
DATE: 08/23/2018 SUBJECTIVE: The patient is 58-year-old, seen and examined. He states he feels a little better, less dizzy. No headache. No nausea or vomiting. He states he feels hungry. PHYSICAL EXAMINATION: VITAL SIGNS: He is afebrile, pulse 67, respirations 20, blood pressure 156/96. LUNGS: Bilateral fair airflow. No rhonchi or crackle. HEART: S1 and S2 audible. ABDOMEN: Soft. Nontender. No rebound. No guarding. NEUROLOGICAL: The patient is awake, alert, oriented, communicative. LABORATORY EXAM: WBC is 8.9, hemoglobin 13, hematocrit 39.8, platelet 192. PT 12.3, INR 1.08. Chemistry: Sodium 139, potassium 3.8, chloride 106, CO2 of 25, BUN 13, creatinine 0.8, blood sugar of 95. LFTs are within normal limit. Echocardiogram is pending. Carotid Doppler is unremarkable. MRI of the brain shows numerous small infarct at the bilateral cerebellar hemisphere, right thalamus and bilateral occipital lobes compatible with embolic infarction. Affecting bilateral HOP WEIGHER and deep right MCA. ASSESSMENT: 1. Embolic occipital and cerebellar stroke leading to dizziness. 2. Hypertension. 3. History of recent tooth procedure where he had capping done and teeth cleaning done in first week of 06/2018 to rule out infectious etiology. PLAN: The patient is getting echocardiogram. The patient is going for loop recorder. We will continue on aspirin 325 daily and we will make meclizine p.r.n. The patient will be started on Coumadin and Lovenox. Discussed with the patient and his . The patient states he will train himself and we will make a discharge plan with Lovenox and Coumadin and will be followed as outpatient. Carri Ricketts MD
[2018-08-23] MEDS ORDERED: Lidocaine PF 2% (5 ml) Inj (For Cardiac Arrhy) ONE (13:46)
--- NOTE | 2018-08-23 14:13 | CPOSTOP ---
DATE: 08/23/2018 CARDIOVASCULAR LAB POST PROCEDURE NOTE DICTATING PHYSICIAN: Lan Trejo MD. BMET: Gricel ip/mosaic technician. TYPE OF ANESTHESIA: Local anesthesia. 2% lidocaine infiltrated in the chest. No conscious sedation given. PRE-PROCEDURE DIAGNOSIS: Embolic stroke in the cerebellum. PROCEDURE PERFORMED: Implantation of loop recorder (LINQ Reveal). FINDINGS: Embolic stroke. FINAL DIAGNOSES: Embolic stroke. Rule out arrhythmia. POST PROCEDURE CONDITION: Stable. ACCESS SITE: Left side of the chest. CLOSURE DEVICE: Dermabond applied. RADIATION DOSE: None. FLUORO TIME: None. Lan Trejo MD
--- NOTE | 2018-08-23 14:18 | CARDCATH ---
PROCEDURE DATE: 08/23/2018 CARDIAC ACETONE BUTTON PASTER PROCEDURE, IMPLANTATION OF LOOP RECORDER REVEAL ( LINQ) from [employer] INDICATION FOR THE PROCEDURE: Embolic stroke in multiple area of the cerebellum. Rule out arrhythmia. 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 CAT scan was negative for any bleed. Repeat MRI done that shows multiple area of embolic stroke. The patient was seen by Neurology, suggested loop recorder to rule out arrhythmia of cryptogenic stroke. DESCRIPTION OF PROCEDURE: The patient was brought to the research lab assistant, prepped and draped in standard sterile fashion. Left side of the chest was prepped in standard sterile fashion, then lidocaine 2% was given in the fourth intercostal space 1.5 cm away from the midsternal line. Then, small incision was made with Bard Stanley (BP) knife #11 and the loop recorder from [employer] reveal ( Linq) was injected. The puncture site was closed with Dermabond. The patient tolerated the procedure well and returned to floor in stable condition. Arrangement has been made for the transtelephonic recording. Further recommendations depending upon the hospital course. We will follow with you. Thank you, Dr. Ricketts for providing us the opportunity in taking care of the patient, Micah Bolanos. Lan Trejo MD cc: Carri Ricketts MD [facility]ITAL[facility]
--- NOTE | 2018-08-23 17:24 | CARD ---
APPROVED REPORT Date of service: 08/23/2018 EXAM: Two-dimensional and M-mode echocardiogram with Doppler and color Doppler. INDICATION CVA WITH EMBOLIC STROKE..BUBBLE STUDY..R/O PFO,LVFX 2D DIMENSIONS Left Atrium (2D)3.1 (1.6-4.0cm)IVSd1.1 (0.7-1.1cm) LVDd4.7 (3.9-5.9cm)PWd1.0 (0.7-1.1cm) LVDs3.4 (2.5-4.0cm)FS (%) 27.8 % LVEF (%)54.1 (>50%) M-Mode DIMENSIONS Aortic Root3.70 (2.2-3.7cm)Aortic Cusp Exc.1.90 (1.5-2.0cm) Aortic Valve AoV Peak Ktdgmbsp025.0cm/Venkat Peak GR.8mmHg Mitral Valve MV E Drmgjwvo80.6cm/sMV A Ptorpkfx88.2cm/sE/A ratio0.9 TDI Lateral E' Peak V11.10cm/sMedial E' Peak V7.99cm/sE/Lateral E'6.5 E/Medial E'9.0 Pulmonary Valve PV Peak Zufkqumd73.3cm/sPV Peak Grad.2mmHg Tricuspid Valve TR Peak Vximiztr527nf/sRAP [id number] Peak Gr.19mmHg [id number] LEFT VENTRICLE The left ventricle is normal size. There is normal left ventricular wall thickness. The left ventricular function is normal.EF-55% There is normal LV segmental wall motion. Transmitral Doppler flow pattern is Grade III-reversible restrictive diastolic dysfunction. No left ventricle thrombus noted on this study. There is no ventricular septal defect visualized. There is no left ventricular aneurysm. There is no mass noted in the left ventricle. RIGHT VENTRICLE The right ventricle is normal size. There is normal right ventricular wall thickness. The right ventricular systolic function is normal. ATRIA The left atrium size is normal. The right atrium size is normal. The interatrial septum is intact with no evidence for an atrial septal defect by color flow and bubble study. AORTIC VALVE The aortic valve is thickened but opens well. The aortic valve is mildly sclerotic. There is trace aortic regurgitation. There is no aortic valvular stenosis. There is no aortic valvular vegetation. MITRAL VALVE The mitral valve is thickened but opens well. Mitral regurgitation is trace. There is no mitral valve stenosis. There is no evidence of mitral valve prolapse. TRICUSPID VALVE The tricuspid valve leaflets are thickened , but open well. There is trace tricuspid regurgitation.RVSP-29 mmofHg There is no tricuspid valve stenosis. There is no tricuspid valve prolapse or vegetation. PULMONIC VALVE The pulmonary valve is normal in structure. There is no pulmonic valvular regurgitation. There is no pulmonic valvular stenosis. GREAT VESSELS The aortic root is normal in size. The ascending aorta is normal in size. The pulmonary artery is normal. The IVC is normal in size and collapses >50% with inspiration. PERICARDIAL EFFUSION There is no pleural effusion. There is no pericardial effusion. <Conclusion> Normal Chamber Size. EF-55%. trace MR/TR/ AR. RVSP-29 mmof hg. Intact Intra atrial septum by colorflow and bubble study.
--- NOTE | 2018-08-23 17:56 | PN ---
DATE: 08/23/2018 NEUROLOGY FOLLOWUP CHIEF COMPLAINT: Follow up for status post bilateral embolic infarcts. SUBJECTIVE: The patient was seen and examined at bedside. Has much less dizziness. Now able to focus more and move all extremities equally. He just had a loop recorder placed by Cardiology and has blood work for hematological workup, for hypercoagulable work and should be on Coumadin starting tomorrow for stroke prevention. He is on aspirin 81 mg daily. PAST MEDICAL HISTORY: History of hypertension. REVIEW OF SYSTEMS: Fourteen-point review of systems is negative except as per the HPI. FAMILY HISTORY: Noncontributory. ALLERGIES: NO KNOWN DRUG ALLERGIES. MEDICATIONS: Reviewed by nurses' reconciliation sheet. LABORATORY DATA: Sodium is 139, potassium 3.9, chloride 106, CO2 of 25, BUN of 13, creatinine 0.8, random glucose of 94, A1c is 5.5. LDL is 111, triglycerides 65, total cholesterol 174, HDL 71. PHYSICAL EXAMINATION: VITAL SIGNS: Temperature 97.9, pulse rate of 67, blood pressure 154/78, respiratory rate of 20, and oxygen saturation 97% by room air. GENERAL: The patient is sitting up in bed, in no acute distress. HEENT: Atraumatic, normocephalic. PERRLA. Extraocular muscles intact. NECK: Supple. No JVD, no adenopathy noted. LUNGS: Clear to auscultation. No adventitious sounds. HEART: S1, S2. Normal rate and rhythm. No murmurs, rubs, or gallops. ABDOMEN: Soft, nontender, and nondistended. Bowel sounds are present. EXTREMITIES: No clubbing. No cyanosis. Peripheral pulses 2+ felt bilaterally. NEUROLOGIC: The patient is alert and oriented to person, place, month, and year. Speech is fluent without any errors. Cranial nerves II through XII are intact. Motor: Moves all extremities equally. No dysmetria noted. Gait is deferred for now. ASSESSMENT AND PLAN: This is a 58-year-old male with history of hypertension who came for intractable dizziness, which was secondary to numerous small infarcts in the bilateral cerebral hemispheres, right thalamus, and bilateral occipital lobes, compatible with embolic infarction affecting the bilateral posterior cerebral artery and deep right middle cerebral artery branches. At this time, his carotid Doppler showed 20%-39% proximal internal carotid artery stenosis with antegrade flow in vertebral arteries. He is status post loop recorder to evaluate for arrhythmias causing his embolic infarcts and he will be undergoing a hypercoagulable workup by Hematology. At this time, we would recommend: 1. Starting Coumadin tomorrow to reach an INR between 2.5 to 3 in addition to his baby aspirin and Lipitor 40 mg for stroke prevention. 2. Follow up with Cardiology's recommendation and can follow up with me as an outpatient. 3. PT/OT evaluation. Camden Jimenez MD
--- NOTE | 2018-08-24 00:13 | CON ---
DATE: 07/23/2018 LOCATION: Room 366, bed 1. CHIEF COMPLAINT: Dizziness times one-day duration. HISTORY OF PRESENT ILLNESS: This is a 58-year-old male with no significant past medical history, who states that he had dizziness some time ago, it resolved. Yesterday, day before admission, he was admitted with dizziness. He denies any headaches. No chest pain. No fevers. No chills. No abdominal pain, diarrhea or constipation. The patient had an MRI of the head, which shows significant findings and embolic disease. An Infectious Disease consultation requested because of possible endocarditis with embolic event. REVIEW OF SYSTEMS: A 12-point review of systems was performed. There are no fevers. No chills. No chest pain. No shortness of breath or cough. No hemoptysis. No abdominal pain, diarrhea or constipation. No bright red blood per rectum. No melena, dysuria, frequency. No rash. No new joint pain. No back pain. No other symptoms other than the dizziness. PAST MEDICAL HISTORY: Noncontributory. PAST SURGICAL HISTORY: Noncontributory. ALLERGIES: THE PATIENT HAS NO KNOWN ALLERGIES. SOCIAL HISTORY: He lives with his . 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 Works in [employer]. He did have dental work done on 06/05/2018. It was extensive dental work, which required placement of a cap. He originally started having a root canal, and eventually had a cap done. He has no pet exposure. No recent travel. Last travel was to [facility] 2 years ago. MEDICATIONS AT HOME: Include Zofran and Antivert, which he has recently taken for his dizziness. PHYSICAL EXAMINATION: VITAL SIGNS: Temperature is 98, blood pressure is 140/90, respiratory rate of 20, heart rate of 64. His oxygen saturation is 99 on room air. HEENT: Examination of HEENT is unremarkable. The pupils are equal, reactive to light and accommodation. Extraocular muscles intact. Conjunctivae are pink. Sclerae are nonicteric. NECK: Supple. LUNGS: Have decreased breath sounds. HEART: Normal S1 and S2. ABDOMEN: Soft. LABORATORY DATA: Laboratory examination reveals a white count of 8.2, hemoglobin of 13, platelets of 176. Coagulations are noted. The chemistries reveal a BUN of 13, creatinine of 0.8, glucose of 129, hemoglobin A1c of 5.5. LFTs are normal. Triglycerides are normal. Alk phos is normal. TSH is normal. The patient had an MRI of the brain, which is consistent with an embolic infarction. Dr. Kilpatrick has read the MRI as numerous small infarcts identified in bilateral cerebellar hemispheres. Right thalamus and bilateral occipital lobes compatible with embolic infarction, process affecting bilateral [employer] and deep right MCA branches. Dr. Ricketts's note is reviewed. Dr. Rudolph's consultation is reviewed. ASSESSMENT AND PLAN: A 58-year-old male with no medical history, who was admitted with dizziness, who had dental work done in 05/2018, now admitted with dizziness and positive findings on MRI of embolic infarction. Must rule out underlying endocarditis whether related to the tooth or not. At this point, the patient has no fevers, no chills and clinically stable. He has no weakness. We will hold off on the antibiotics. We will order blood cultures x2. We will order sed rate C-reactive protein. Discuss an echocardiogram with Dr. Trejo who is on the case. We will make further recommendations pending initial workup and we will also order an human immunodeficiency virus because of his age pending echocardiogram finding and culture results. May need further workup as far as culture negative endocarditis. I will also ask Microbiology to hold the blood cultures x3 weeks for the . Since the patient was in [facility], brucellosis is possibility if all the initial workup is negative and if the workup for culture negative endocarditis including brucellosis, which may present without any fevers. We will follow closely with you. Edi Grissom MD
[2018-08-24] MEDS ORDERED: Pantoprazole 40 mg EC Tab PO SCH (06:00)
--- NOTE | 2018-08-24 07:39 | CP.PCM.PN ---
Subjective - Date & Time of Evaluation Date of Evaluation: 08/24/18 Time of Evaluation: 06:40 - Subjective Subjective: Awake, no distress Reason for consultation and follow up:Cardiac evaluation of sudden dizziness, embolic stroke Seen and examined by me and Dr. Trejo Objective - Vital Signs/Intake and Output Vital Signs (last 24 hours): Temp Pulse Resp BP Pulse Ox 98.4 F 61 20 144/98 H 97 08/23/18 18:00 08/24/18 06:00 08/23/18 18:00 08/23/18 18:00 08/23/18 18:00 Intake and Output: 08/24/18 08/24/18 06:59 18:59 Intake Total 240 Output Total 200 Balance 40 - Medications Medications: Current Medications Acetaminophen (Tylenol 325mg Tab) 650 mg PO Q4H PRN PRN Reason: Pain, Mild (1-3) Amlodipine Besylate (Norvasc) 10 mg PO DAILY [facility] Last Admin: 08/23/18 11:19 Dose: 10 mg Aspirin (Aspirin) 325 mg PO DAILY [facility] Last Admin: 08/23/18 09:17 Dose: 325 mg Atorvastatin Calcium (Lipitor) 20 mg PO DIN [facility] Last Admin: 08/23/18 17:37 Dose: 20 mg Meclizine HCl (Antivert) 25 mg PO TID PRN PRN Reason: Dizziness Ondansetron HCl (Zofran Inj) 4 mg IVP Q6H PRN PRN Reason: Nausea/Vomiting Last Admin: 08/22/18 08:26 Dose: 4 mg Pantoprazole Sodium (Protonix Ec Tab) 40 mg PO 0600 [facility] Last Admin: 08/24/18 05:09 Dose: 40 mg - Labs Labs: 08/23/18 05:30 08/23/18 05:30 PT 12.3 SECONDS (9.4-12.5) 08/21/18 20:55 INR 1.08 08/21/18 20:55 APTT 23.1 Seconds (25.1-36.5) L 08/21/18 20:55 - Constitutional Appears: No Acute Distress - Eye Exam Eye Exam: Normal appearance - ENT Exam ENT Exam: Mucous Membranes Moist - Respiratory Exam Respiratory Exam: Clear to Ausculation Bilateral, NORMAL BREATHING PATTERN - Cardiovascular Exam Cardiovascular Exam: +S1, +S2 Additional comments: left chest loop recorder - GI/Abdominal Exam GI & Abdominal Exam: Soft, Normal Bowel Sounds - Extremities Exam Extremities Exam: Normal Capillary Refill - Neurological Exam Neurological Exam: Alert, Awake, Oriented x3 - Psychiatric Exam Psychiatric exam: Normal Affect - Skin Skin Exam: Dry, Warm Assessment and Plan - Assessment and Plan (Free Text) Assessment: 58 year old male who came in to the ER due sudden onset of dizziness associated with nausea and vomiting. Denies chest pain or shortness of breath. He was helping his son move some items. No significant medical history except chronic tinnitus and was seen by Dr. Galloway. MRI of brain shows multiple embolic stroke. Cardiac consult for possible insertion of loop recorder to rule out for any arrhythmias. Will also order Echo to evaluate LV function rule out patent foramen ovale. Carotid studies unremarkable. Status post loop recorder insertion yesterday. Plan: Feels okay, no distress Status post insertion of loop recorder Echo done-[id number]%,normal chamber size, Trace MR/TR/AR RVSP 29 mmHg, Intact intra atrial septum. Heart rate and blood pressure stable Cardiac status stable ASA 325 mg daily,Lipitor 20 mg daily,Decadron 10 mg every 8 hours Antivert 25m g TID Neuro on consult Anticoagulation per hematology-(coumadin) Continue current treatment Continue current medications Fall precaution Will follow up Plan and treatment discussed with Dr. Trejo
--- NOTE | 2018-08-24 08:34 | PN ---
DATE: 08/23/2018 REASON FOR DICTATION: Addendum to the initial progress note dictated by our nurse practitioner, Dorothy Montelongo. REASON FOR ADDENDUM: Discussed with the patient. Discussed with the patient's . Chart reviewed. Consultation from Neurology reviewed. Suggested loop recorder. We will get echo with a bubble study today. The patient is awaiting Holter schedule for loop recorder placed. Further recommendations depending upon the hospital course. We will follow with you. The patient is supposed to get Eliquis, seen by Hematology who suggested Coumadin and Lovenox as a bridge. We will follow as per the recommendation. Thank you, Dr. Ricketts, for proving us the opportunity in taking care of the patient, Miach Bolanos. Lan Trejo MD
[2018-08-24] MEDS: Enoxaparin 80 mg Syringe SC SCH ×2 (12:22→23:12)
--- NOTE | 2018-08-24 15:10 | CT ---
Date of service: 08/24/2018 PROCEDURE: CT HEAD WITHOUT CONTRAST. HISTORY: S/P Stroke COMPARISON: MRI brain dated 08/22/2018; CT head dated 08/21/2018. TECHNIQUE: Axial computed tomography images were obtained through the head/brain without intravenous contrast. Radiation dose: Total exam DLP = 1007.1 mGy-cm. This CT exam was performed using one or more of the following dose reduction techniques: Automated exposure control, adjustment of the mA and/or kV according to patient size, and/or use of iterative reconstruction technique. FINDINGS: HEMORRHAGE: No intracranial hemorrhage. BRAIN: Interval decreased attenuation in both thalami, inferomedial bilateral occipital lobes and most predominantly in both cerebellar hemispheres, right more than left. VENTRICLES: Unremarkable. No hydrocephalus. CALVARIUM: Unremarkable. PARANASAL SINUSES: Unremarkable as visualized. No significant inflammatory changes. MASTOID AIR CELLS: Unremarkable as visualized. No inflammatory changes. OTHER FINDINGS: None. IMPRESSION: Increased edema and evolution of bilateral subacute thalamic, but septal and cerebellar infarctions.
[2018-08-24] MEDS ORDERED: Dexamethasone 4 mg/1 ml IVP ONE (16:00)
--- NOTE | 2018-08-24 16:01 | PN ---
DATE: 08/24/2018 This note is an addendum to the initial progress note dictated by the nurse practitioner. REASON FOR CONSULTATION AND FOLLOWUP: Cardiac evaluation for embolic stroke. The patient yesterday underwent loop recorder implantation. Echo showed with the bubble study no atrial septal defect or PFO, intact interatrial septum. Initially, the patient underwent a loop recorder and arrangement has been made for transtelephonic as well as on-site for monitoring to rule out any occult arrhythmia. Initial plan was to start Eliquis, but as recommended by invoice classification clerk, start Lovenox as bridge and then Coumadin, so we leave up to invoice classification clerk to monitor the anticoagulation. The patient is cleared to be discharged from our Cardiology point of view and appointment was given to follow up in two weeks. Discussed with the and office number was given to follow up as an outpatient in two weeks. The patient is okay to be discharged from Cardiology point of view once the anticoagulation issue has been addressed and started. Thank you, Dr. Ricketts, for providing us the opportunity in taking care of the patient, Micah Bolanos. Lan Trejo MD
--- NOTE | 2018-08-24 16:49 | CP.PCM.PN ---
Subjective - Date & Time of Evaluation Date of Evaluation: 08/24/18 Time of Evaluation: 10:20 - Subjective Subjective: Comfortable in bed, no fevers. Objective - Vital Signs/Intake and Output Vital Signs (last 24 hours): Temp Pulse Resp BP Pulse Ox 97.3 F L 61 20 133/91 H 96 08/24/18 06:00 08/24/18 10:00 08/24/18 06:00 08/24/18 09:14 08/24/18 06:00 Intake and Output: 08/24/18 08/24/18 06:59 18:59 Intake Total 240 Output Total 200 Balance 40 - Medications Medications: Current Medications Acetaminophen (Tylenol 325mg Tab) 650 mg PO Q4H PRN PRN Reason: Pain, Mild (1-3) Amlodipine Besylate (Norvasc) 10 mg PO DAILY [facility] Last Admin: 08/24/18 09:14 Dose: 10 mg Aspirin (Aspirin) 325 mg PO DAILY [facility] Last Admin: 08/24/18 09:14 Dose: 325 mg Atorvastatin Calcium (Lipitor) 20 mg PO DIN [facility] Last Admin: 08/23/18 17:37 Dose: 20 mg Enoxaparin Sodium (Lovenox) 80 mg SC Q12H [facility]; Protocol Last Admin: 08/24/18 12:22 Dose: 80 mg Meclizine HCl (Antivert) 25 mg PO TID PRN PRN Reason: Dizziness Ondansetron HCl (Zofran Inj) 4 mg IVP Q6H PRN PRN Reason: Nausea/Vomiting Last Admin: 08/22/18 08:26 Dose: 4 mg Pantoprazole Sodium (Protonix Ec Tab) 40 mg PO 0600 [facility] Last Admin: 08/24/18 05:09 Dose: 40 mg Warfarin Sodium (Coumadin) 6 mg PO 1800 [facility]; Protocol - Labs Labs: 08/23/18 05:30 08/23/18 05:30 PT 12.3 SECONDS (9.4-12.5) 08/21/18 20:55 INR 1.08 08/21/18 20:55 APTT 23.1 Seconds (25.1-36.5) L 08/21/18 20:55 - Constitutional Appears: Chronically Ill - Head Exam Head Exam: NORMAL INSPECTION - Respiratory Exam Respiratory Exam: Decreased Breath Sounds - Cardiovascular Exam Cardiovascular Exam: +S1, +S2 - GI/Abdominal Exam GI & Abdominal Exam: Soft. absent: Tenderness Assessment and Plan - Assessment and Plan (Free Text) Plan: Assessment CVA, R/O embolic R/O bacteremia, no vegetations noted on 2D echo in this patient who had dental work in May 2018 Plan follow up final blood cx results; [facility] cx for up to 2 weeks to see if bacteria grow reviewed 2D echo which does not show vegetations will monitor clinically
--- NOTE | 2018-08-24 22:07 | PN ---
DATE: 08/24/2018 SUBJECTIVE: The patient is 58 years old, seen and examined, lying in bed. Seems to be comfortable. Less dizziness. Able to tolerate food. Had loop recorder placed yesterday. PHYSICAL EXAMINATION: VITAL SIGNS: He is afebrile, pulse 62, respirations 20, blood pressure 138/69. LUNGS: Bilateral fair airflow. No rhonchi or crackle. HEART: S1 and S2 audible. ABDOMEN: Soft. Nontender. No rebound. No guarding. NEUROLOGICAL: The patient is awake, alert, oriented, communicative. LABORATORY EXAM: RPR is negative. HIV is negative. TENZIN screen is unremarkable. CT scan of the head was done shows increased edema and evolution of bilateral subacute thalamic infarct with septal and cerebellar infarction. Echocardiogram was done that shows normal chamber, intact intraatrial septum by color flow and bubble study. Ejection fraction is 55%. ASSESSMENT: 1. Bilateral thalamic and cerebellar stroke, probably embolic phenomena. Coagulation workup is in progress. The patient has loop recorder placed and has been started on p.o. Coumadin and has been started on Lovenox. 2. Dizziness. Seems to be resolved. PLAN: The patient is on meclizine as needed. We will keep him on aspirin. He was given Coumadin 6 mg today. Continue him on Lovenox 80 mg every [address] Jimenez and Dr. Rudolph. We will continue him on 6 mg of Coumadin. He will be trained to inject himself with Lovenox and probably he will be discharged in the a.m. Carri Ricketts MD
[2018-08-25 07:57] VITALS: BP 130/87; PULSE 62; RESP 20; TEMP 98.2; O2SAT 98
[2018-08-25] MEDS: Enoxaparin 80 mg Syringe SC SCH (10:01)
--- NOTE | 2018-08-25 13:00 | CP.PCM.PN ---
Subjective - Date & Time of Evaluation Date of Evaluation: 08/25/18 Time of Evaluation: 12:30 - Subjective Subjective: No fevers, not in distress, no chest pain, no headache. Objective - Vital Signs/Intake and Output Vital Signs (last 24 hours): Temp Pulse Resp BP Pulse Ox 98.2 F 62 20 130/87 98 08/25/18 06:00 08/25/18 06:00 08/25/18 06:00 08/25/18 10:01 08/25/18 06:00 Intake and Output: 08/25/18 08/25/18 06:59 18:59 Intake Total 800 360 Output Total 740 Balance 800 -380 - Medications Medications: Current Medications Acetaminophen (Tylenol 325mg Tab) 650 mg PO Q4H PRN PRN Reason: Pain, Mild (1-3) Amlodipine Besylate (Norvasc) 10 mg PO DAILY [facility] Last Admin: 08/25/18 10:01 Dose: 10 mg Aspirin (Aspirin) 325 mg PO DAILY [facility] Last Admin: 08/25/18 10:01 Dose: 325 mg Atorvastatin Calcium (Lipitor) 20 mg PO DIN [facility] Last Admin: 08/24/18 16:07 Dose: 20 mg Enoxaparin Sodium (Lovenox) 80 mg SC Q12H [facility]; Protocol Last Admin: 08/25/18 10:01 Dose: 80 mg Meclizine HCl (Antivert) 25 mg PO TID PRN PRN Reason: Dizziness Ondansetron HCl (Zofran Inj) 4 mg IVP Q6H PRN PRN Reason: Nausea/Vomiting Last Admin: 08/22/18 08:26 Dose: 4 mg Warfarin Sodium (Coumadin) 6 mg PO 1800 [facility]; Protocol Last Admin: 08/24/18 18:58 Dose: 6 mg - Labs Labs: 08/23/18 05:30 08/23/18 05:30 PT 12.3 SECONDS (9.4-12.5) 08/21/18 20:55 INR 1.08 08/21/18 20:55 APTT 23.1 Seconds (25.1-36.5) L 08/21/18 20:55 - Constitutional Appears: Non-toxic, Chronically Ill - Head Exam Head Exam: NORMAL INSPECTION - Respiratory Exam Respiratory Exam: Decreased Breath Sounds - Cardiovascular Exam Cardiovascular Exam: +S1, +S2 - GI/Abdominal Exam GI & Abdominal Exam: Soft. absent: Tenderness Assessment and Plan - Assessment and Plan (Free Text) Plan: Assessment CVA, probably embolic so far no evidence of bacteremia, no vegetations noted on 2D echo in this patient who had dental work in May 2018 Plan blood cx negative x 2 days and follow up final results; [facility] cx for up to 2 weeks to see if bacteria grow reviewed 2D echo which does not show vegetations
--- NOTE | 2018-08-26 12:32 | DS ---
HISTORY OF PRESENT ILLNESS: The patient is a 58-year-old who was admitted because of extreme dizziness, vertigo and nausea. The patient states he is doing well up until two days prior to coming to the hospital. He was helping his son to move out and when he was driving home, he felt extremely dizzy, lightheaded and dizziness was more upon moving his head. He started to vomit, so brought him to Emergency Room for further evaluation. Initial workup was negative including his CT scan and carotid Doppler. MRI was ordered that showed embolic stroke in cerebellum and thalamus. So, the patient was initially given steroids and then, he was started on Lovenox and Coumadin. He was given 6 mg yesterday and 6 mg today. He will follow up in office on Monday to check PT/INR. PHYSICAL EXAMINATION: GENERAL: Earlier, on examination, he was awake, alert, oriented, communicative. VITAL SIGNS: The patient is afebrile, pulse 62, respirations 20, blood pressure 133/87. LUNGS: Bilateral good airflow. No rhonchi or crackle. HEART: S1, S2 audible. ABDOMEN: Soft, nontender. No rebound, no guarding. NEUROLOGIC: The patient is awake, alert, oriented, communicative, ambulatory. LABORATORY DATA: His total cholesterol is 176, LDL is 113, HDL is 34. HIV test and RPR are negative. Urine screen is negative. CRP is 8.02. ASSESSMENT AND PLAN: 1. Embolic stroke, thalamic, occipital and cerebellar. The patient has loop recorder placed by Dr. Trejo. 2. Vertigo that has improved. So, plan is the patient is being discharged home on Lovenox 80 mg every 12 hours. was trained. He was given prescription of Coumadin and Lovenox and follow up in office on Monday to check his PT/INR. Carri Ricketts MD
[2018-08-27 03:51] LABS: B2 GLYCOPROTEIN I AB(IGA) <9 SAU (<=20); B2 GLYCOPROTEIN I AB(IGG) <9 SGU (<=20); B2 GLYCOPROTEIN I AB(IGM) <9 SMU (<=20); CARDIOLIPIN AB (IGA) <11 APL (<=11); CARDIOLIPIN AB (IGG) <14 GPL (<=14); CARDIOLIPIN AB (IGM) <12 MPL (<=12)
[2018-08-27 04:51] LABS: PHOSPHATIDYLSERINE AB IGA <20 U/mL (<20); PHOSPHATIDYLSERINE AB IGG <10 U/mL (<10); PHOSPHATIDYLSERINE AB IGM <25 U/mL (<25)
[2018-08-28 19:27] LABS: DRVVT 1:1 MIX CORRECTED (CORRECTED); DRVVT CONFIRM Positive (Negative)
== END 2018-08-25 13:59 | disposition home or self-care (01) | DRG 41 ==
LOC: ED 20:25 → ERH 08-22 01:11 → 3RNO 08-22 01:58 → OBSVTOIN 08-23 12:28
PROVIDERS: ADMIT Internal Medicine; ATTEND Internal Medicine
PROC: 0JH632Z Insertion of Monitoring Device into Chest Subcutaneous Tissue and Fascia, Percutaneous Approach (ICD-10-PCS; principal; 2018-08-23)
DX: I63.411 Cerebral infarction due to embolism of right middle cerebral artery (principal); D68.59 Other primary thrombophilia; I65.29 Occlusion and stenosis of unspecified carotid artery; I10 Essential (primary) hypertension; F17.290 Nicotine dependence, other tobacco product, uncomplicated; Z79.01 Long term (current) use of anticoagulants; Z79.82 Long term (current) use of aspirin; Z82.3 Family history of stroke; R40.2412 Glasgow coma scale score 13-15, at arrival to emergency department

== ENCOUNTER 2018-08-26 07:58 | Inpatient (IN) | payer BC ==
[2018-08-26 08:09] VITALS: BMI 25.5
[2018-08-26] MEDS ORDERED: Absorbable Gelatin Sponge Size 12-7 ONE (08:21)
--- NOTE | 2018-08-26 08:38 | ED PDOC ---
Arrival/HPI - General Historian: Patient, Spouse - History of Present Illness Narrative History of Present Illness (Text): 08/26/18 08:37 58 year old male, past medical history of cerebellar embolic stroke and GERD, presents to the emergency department with bleeding over loop monitor insertion site. Patient was recently discharged after suffering a stroke. Dr. Trejo had placed a loop Monitor in the anterior chest prior to discharge. This morning, the patient woke up to a pool of blood over his chest and face. Patient is currently on coumadin and lovenox, being bridged. Denies chest pain, dizziness, palpitations, shortness of breath, hearing or vision changes, cough, fever, chills, nausea, vomiting, or urinary symptoms. PMD: Dr. Ricketts 08/26/18 10:18 Time/Duration: Prior to Arrival, 4-6 hours Symptom Onset: Sudden Symptom Course: Unchanged Severity Level: Mild Context: Home <Ji Greenwood - Last Filed: 08/26/18 13:37> <Finesse Winters DO - Last Filed: 08/26/18 17:57> - General Chief Complaint: Abnormal Skin Integrity Time Seen by Provider: 08/26/18 08:04 Past Medical History - Provider Review Nursing Documentation Reviewed: Yes - Infectious Disease Hx of Infectious Diseases: None - Cardiac Hx Cardiac Disorders: No - Pulmonary Hx Respiratory Disorders: No - Neurological Hx Neurological Disorder: Yes HX Cerebrovascular Accident: Yes - HEENT Hx HEENT Disorder: No - Renal Hx Renal Disorder: No - Endocrine/Metabolic Hx Endocrine Disorders: No - Hematological/Oncological Hx Blood Disorders: No - Integumentary Hx Dermatological Disorder: No - Musculoskeletal/Rheumatological Hx Musculoskeletal Disorders: No Hx Falls: No - Gastrointestinal Hx Gastrointestinal Disorders: No - Genitourinary/Gynecological Hx Genitourinary Disorders: No - Psychiatric Hx Psychophysiologic Disorder: No Hx Substance Use: No - Anesthesia Hx Anesthesia: No <Ji Greenwood - Last Filed: 08/26/18 13:37> Family/Social History - Physician Review Nursing Documentation Reviewed: Yes Family/Social History: No Known Family HX Smoking Status: Never Smoked Hx Alcohol Use: Yes Hx Substance Use: No <Ji Greenwood - Last Filed: 08/26/18 13:37> Allergies/Home Meds <Ji Greenwood - Last Filed: 08/26/18 13:37> <Leighahollis Finesse - Last Filed: 08/26/18 17:57> Allergies/Adverse Reactions: Allergies No Known Allergies Allergy (Unverified 08/21/18 20:44) Review of Systems - Physician Review All systems were reviewed & negative as marked: Yes - Review of Systems Constitutional: absent: Fevers Eyes: absent: Vision Changes ENT: absent: Hearing Changes Respiratory: absent: SOB, Cough Cardiovascular: absent: Chest Pain, Palpitations Gastrointestinal: absent: Abdominal Pain, Nausea, Vomiting Genitourinary Male: absent: Dysuria Musculoskeletal: absent: Arthralgias Skin: absent: Rash Neurological: absent: Headache, Dizziness Endocrine: absent: Diaphoresis <Fidelia Greenwoodbah - Last Filed: 08/26/18 13:37> Physical Exam Vital Signs Reviewed: Yes Vital Signs Temp Pulse Resp BP Pulse Ox 08/26/18 08:05 98.4 F 62 18 142/92 H 97 Temperature: Afebrile Blood Pressure: Normal Pulse: Regular Respiratory Rate: Normal Appearance: Positive for: Well-Appearing, Comfortable Pain Distress: None Mental Status: Positive for: Alert and Oriented X 3 - Systems Exam Head: Present: Atraumatic, Normocephalic Pupils: Present: PERRL Extroacular Muscles: Present: EOMI Mouth: Present: Moist Mucous Membranes Respiratory/Chest: Present: Clear to Auscultation, Good Air Exchange. No: Respiratory Distress, Accessory Muscle Use Cardiovascular: Present: Regular Rate and Rhythm, Normal S1, S2. No: Murmurs Abdomen: No: Tenderness, Distention, Peritoneal Signs Skin: Present: Other (Anterior chest luke monitor site bleeding) Psychiatric: Present: Alert, Oriented x 3, Normal Insight, Normal Concentration <Ji Greenwood - Last Filed: 08/26/18 13:37> Vital Signs Temp Pulse Resp BP Pulse Ox 08/26/18 08:05 98.4 F 62 18 142/92 H 97 <Vianey Finesse - Last Filed: 08/26/18 17:57> Medical Decision Making ED Course and Treatment: 08/26/18 9:18 58M presents to ED with bleeding from loop monitor insertion site -PT/INR - 2.33 -Applied Gelfoam, Surgicel, and Silver Nitrate to control bleeding -Dermabond -Pressure dressings 08/26/18 10:52 Multiple attempts at controlling bleeding unsuccessful. vice president of talent acquisition was called. vice president of talent acquisition applied surgicel and pressure dressing. Case discussed with Dr. Ricketts who came and saw patient. Dr. Ricketts recommended 2.5mg SC Vitamin K and admit for observation. Case discussed with Dr. Jason, covering for Dr. Trejo, and recommends admit for observation for bleeding control and monitoring. 08/26/18 13:37 Patient verbalized understanding and agreement of treatment plan case reviewed and discussed with attending provider <Ji Greenwood - Last Filed: 08/26/18 13:37> ED Course and Treatment: Impression: Patient Seen with Resident: In agreement with resident note which contains more details about the patient. Patient seen and evaluated with resident. Came up with plan and treatment together. Pt, whose past medical history includes cerebella embolic stroke, and GERD, presented for bleeding over Loop monitor insertion site. Plan: -- PT/PTT -- Silver Nitrate -- Gel Foam -- Dermabond -- Reassess and disposition Multiple attempts made to control bleeding with Dermabond, Gel Foam, and Silver Nitrate, which were unsuccessful. Pt still with bleeding from loop monitor insertion site. vice president of talent acquisition paged and evaluated pt at bedside. Case discussed with Dr. Jason, southeast regional sales manager foundation relations director, who agrees with plan and recommends observation for further evaluation/bleeding control. Dr. Ricketts paged and notified regarding case. 08/26/18 15:[address] Ricketts, pt. to be admitted to telemetry. Ordered changed. - Dr. Winters - Lab Interpretations Lab Results: Lab Results 08/26/18 08:30: PT 27.3 H, INR 2.33, APTT 35.4 I have reviewed the lab results: Yes - Medication Orders Current Medication Orders: Discontinued Medications Phytonadione (Vitamin K Inj) 2.5 mg SC STAT STA Stop: 08/26/18 10:27 Silver Nitrate (Silver Nitrate Topical Stick) 1 swa TOP ONCE ONE Stop: 08/26/18 09:26 Last Admin: 08/26/18 09:31 Dose: 1 swa <Finesse Wintesr DO - Last Filed: 08/26/18 17:57> - PA / [employer] / Resident Statement RICH has reviewed & agrees with the documentation as recorded. RICH has examined the patient and agrees with the treatment plan. <Finesse Winters DO - Last Filed: 08/26/18 17:57> Disposition/Present on Arrival - Present on Arrival Any Indicators Present on Arrival: No History of DVT/PE: No History of Uncontrolled Diabetes: No Urinary Catheter: No History of Decub. Ulcer: No History Surgical Site Infection Following: None - Disposition Have Diagnosis and Disposition been Completed?: Yes Disposition Time: 11:09 Patient Plan: Admission, Observation <Ji Greenwood - Last Filed: 08/26/18 13:37> - Disposition Disposition Time: 08:45 <Finesse Winters DO - Last Filed: 08/26/18 17:57> - Disposition Diagnosis: Postoperative hemorrhage of skin following non-dermatologic procedure, Hypercoagulable state Disposition: HOSPITALIZED Patient Problems: Current Active Problems Problem Status Onset Postoperative hemorrhage of skin following non-dermatologic procedure Acute Hypercoagulable state Acute Condition: FAIR
[2018-08-26 08:47] LABS: INR 2.33; PARTIAL THROMBOPLASTIN TIME 35.4 Seconds (25.1-36.5); PROTHROMBIN TIME 27.3 SECONDS (9.4-12.5)
[2018-08-26] MEDS ORDERED: Silver Nitrate Topical - Stick TOP ONE (09:25)
[2018-08-26] MEDS ORDERED: Phytonadione 10 mg/ml Inj (Adult) SC STA (10:26)
[2018-08-26 10:47] LABS: BASO # 0.02 K/mm3 (0.0-2.0); BASO % 0.2 % (0.0-3.0); EOS % 0.1 % (1.5-5.0); GRAN # 8.02 (1.4-6.5); GRAN % 76.4 % (50.0-68.0); HEMOGLOBIN 14.7 g/dL (14.0-18.0); LYMPH # 1.7 (1.2-3.4); LYMPH % 16.6 % (22.0-35.0); MEAN CELL VOLUME 90.1 fl (80.0-105.0); MEAN CORPUSCULAR HEMOGLOBIN 30.4 pg (25.0-35.0); MEAN CORPUSCULAR HGB CONC 33.8 g/dl (31.0-37.0); MEAN PLATELET VOLUME 11.7 fl (7.0-11.0); MONO # 0.7 (0.1-0.6); MONO % 6.7 % (1.0-6.0); RBC 4.83 10^6/uL (3.5-6.1); RED CELL DISTRIBUTION WIDTH 13.7 % (11.5-14.5); WHITE BLOOD COUNT 10.5 10^3/ul (4.5-11.0)
[2018-08-26 10:56] LABS: ALB/GLOB RATIO 1.3 (1.1-1.8); ALBUMIN 4.2 g/dL (3.0-4.8); ALT/SGPT 37 U/L (7-56); AST/SGOT 30 U/L (17-59); BLOOD UREA NITROGEN 18 mg/dL (7-21); CALCIUM 9.1 mg/dL (8.4-10.5); GFR NON-AFRICAN AMERICAN > 60
[2018-08-26] MEDS: Sodium Chloride 0.9% 1,000 ML IV SCH ×2 (11:09→22:02)
[2018-08-26 19:48] LABS: MEAN CELL VOLUME 89.6 fl (80.0-105.0); MEAN CORPUSCULAR HEMOGLOBIN 30.3 pg (25.0-35.0); MEAN CORPUSCULAR HGB CONC 33.8 g/dl (31.0-37.0); RBC 3.96 10^6/uL (3.5-6.1); RED CELL DISTRIBUTION WIDTH 13.7 % (11.5-14.5); WHITE BLOOD COUNT 10.9 10^3/ul (4.5-11.0)
--- NOTE | 2018-08-27 01:28 | CON ---
DATE: 08/26/2018 CARDIOLOGY CONSULT REASON FOR CONSULTATION: Persistent bleeding from the site of loop recorder recently placed. HISTORY OF PRESENT ILLNESS: The patient is a 58-year-old male, who was recently diagnosed with cerebellar embolic stroke, who presented with bleeding from loop monitoring inserted recently. The patient denies any other source of bleeding such as epistaxis, hematuria or melena. Denies any trauma to the insertion site. SOCIAL HISTORY: Nonsmoker, nondrinker. MEDICATIONS: The patient at home was on subcutaneous Lovenox at 80 mg twice a day and warfarin. PAST MEDICAL HISTORY: The patient was recently diagnosed with cerebellar infarct. The most recent head CT scan done 2 days ago revealed increased edema and evolution of bilateral subacute thalamic and cerebellar infarcts. PHYSICAL EXAMINATION: GENERAL: The patient is a middle-aged male, who does not appear to be in acute distress. VITAL SIGNS: Blood pressure 131/84, heart rate 85, temperature 98, respirations 18. HEENT: Normocephalic. CHEST: Clear. HEART: S1 and S2 regular. EXTREMITIES: No edema. LABORATORY DATA: Today's hemoglobin and hematocrit 14.7 and 43.5, white count and platelet count are within normal limits. SMA-7: Sodium 138, potassium 3.6, chloride 102, CO2 of 28, glucose 97, BUN 18, creatinine 0.9. INR is 2.33. PTT is 35.4. Echocardiography study performed 3 days ago revealed ejection fraction measured at 55%. Intact intra-atrial septum by color flow and bubble study. Brain MRI 4 days ago revealed numerous small infarcts in the bilateral cerebellar hemispheres, right thalamic and bilateral occipital lobe compatible with embolic infarcts affecting the bilateral posterior cerebral artery and deep right mid cerebral artery branches. ASSESSMENT: 1. Status post recent bilateral cerebellar infarct, right thalamic and bilateral occipital lobe infarcts. 2. Persistent bleeding from loop monitor insertion site that could not be controlled by pressure, Gelfoam or silver nitrate. The case was discussed with the emergency room physician. The patient did receive 2.5 mg of vitamin K subcutaneously and will receive fresh frozen plasma now. Surgical team was consulted and I recommend the removal of the loop monitor and inspecting the site for any active bleeder before resuming anticoagulation. Js Jason MD
--- NOTE | 2018-08-27 03:36 | HP ---
HISTORY OF PRESENT ILLNESS: The patient is 58 years old. He was just discharged yesterday after he was found to have embolic thalamic and occipital stroke. He was recently started on anticoagulant. He was given Lovenox bridged with Coumadin according to and he woke up this morning. His sheet was soaked with blood and he started to bleed from where his loop recorder was placed 3 days ago. She immediately called an ambulance and he was brought to emergency room. The patient was found to have INR of 2.3. The patient was given vitamin K 2.5 mg subcu and was given 2 units FFP and is being admitted for further evaluation. PAST MEDICAL HISTORY: He has no significant past medical history except having gastritis and recently diagnosed embolic stroke. ALLERGIES: HE IS NOT ALLERGIC TO ANY MEDICATION. MEDICATIONS AT HOME: He is on Lovenox and Coumadin. SOCIAL HISTORY: He is . 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 Denies smoking or drinking. REVIEW OF SYSTEMS: Significant for active chest bleeding in the site of the loop recorder. PHYSICAL EXAMINATION: GENERAL: He is awake, alert and oriented, communicative. VITAL SIGNS: He is afebrile, pulse 82, respirations 18, blood pressure 110/65. LUNGS: Bilateral fair airflow. No rhonchi or crackle. HEART: S1 and S2 audible. ABDOMEN: Soft. Nontender. No rebound. No guarding. NEUROLOGICAL: He is awake, alert, oriented, able to communicate. CHEST: He is having active bleeding from his site of loop recorder placement. LABORATORY EXAM: WBC 10.5, hemoglobin 14.7, hematocrit 43.5, platelet Of 221, PT 27.3, INR 2.33. Chemistry: Sodium 138, potassium 3.6, chloride 102, CO2 of 28, BUN 18, creatinine 0.9, blood sugar of 97. LFTs are within normal limit. ASSESSMENT: 1. Active chest bleeding at the site of loop recorder insertion. 2. Recent embolic stroke involving occipital, thalamic and cerebellum. PLAN: We will hold Coumadin and Lovenox. I will monitor his H and H. Dr. Trejo to evaluate the patient in the a.m. Dr. Rudolph has been consulted as well as Dr. Jimenez. We will follow up this patient in the a.m. Carri Ricketts MD [facility] # [id number]
[2018-08-27 06:59] LABS: INR 1.97
[2018-08-27 07:04] LABS: ALB/GLOB RATIO 1.2 (1.1-1.8); ALBUMIN 3.3 g/dL (3.0-4.8); ALT/SGPT 38 U/L (7-56); AST/SGOT 32 U/L (17-59); BLOOD UREA NITROGEN 18 mg/dL (7-21); CALCIUM 8.4 mg/dL (8.4-10.5); GFR NON-AFRICAN AMERICAN > 60
[2018-08-27 07:09] LABS: HEMOGLOBIN 10.3 g/dL (14.0-18.0); MEAN CELL VOLUME 89.5 fl (80.0-105.0); MEAN CORPUSCULAR HEMOGLOBIN 29.3 pg (25.0-35.0); MEAN CORPUSCULAR HGB CONC 32.7 g/dl (31.0-37.0); MEAN PLATELET VOLUME 11.2 fl (7.0-11.0); RBC 3.52 10^6/uL (3.5-6.1); RED CELL DISTRIBUTION WIDTH 13.6 % (11.5-14.5); WHITE BLOOD COUNT 9.2 10^3/ul (4.5-11.0)
[2018-08-27] MEDS: Sodium Chloride 0.9% 1,000 ML IV SCH ×2 (08:39→17:44)
--- NOTE | 2018-08-27 09:01 | CON ---
DATE: 08/27/2018 HISTORY OF PRESENT ILLNESS: This is a 58-year-old man with past medical history of hypertension, who is with a recent bilateral infarcts in the cerebral hemisphere bilaterally, right thalamus and bilateral occipital lobes as well as cerebellar areas on 08/23/2018, which was possible with intractable dizziness. He underwent a carotid Doppler, which showed 20-39% proximal ICA stenosis and antegrade flow in vertebral arteries. A loop recorder was placed in to evaluate for possible paroxysmal arrhythmias and given that his infarction was embolic in nature and he was given Lovenox bridged with Coumadin and woke up in the morning with his sheet soaked with blood, started bleeding from where his loop recorder was placed. Therefore, he came in to the hospital, found to have an INR of 2.3 and was given vitamin K 2.5 mg subcu and was given 2 units FFP. Cardiology is on board. He is currently not bleeding. Otherwise, no focal weakness of the extremities. He is no longer dizzy. No change in sense of vision, taste or smell. PAST MEDICAL HISTORY: As above. SOCIAL HISTORY: No illicit drug use, smoking or EtOH abuse. REVIEW OF SYSTEMS: Fourteen-point review of systems is negative except as per the HPI. FAMILY HISTORY: Noncontributory. MEDICATIONS: Reviewed by nurses' reconciliation sheet. LABORATORY DATA: INR today is 1.97. Sodium is 138, potassium 3.7, chloride of 106, carbon dioxide 27, BUN of 18, creatinine of 0.7, random glucose of 89. PHYSICAL EXAMINATION: VITAL SIGNS: Temperature 98.2, pulse rate of 68, blood pressure 110/73, respiratory rate of 18, oxygen saturation 99% by room air. GENERAL: The patient is sitting up in bed, in no acute distress. HEENT: Atraumatic, normocephalic. PERRLA. Extraocular muscles intact. NECK: Supple. No JVD, no adenopathy noted. LUNGS: Clear to auscultation. No adventitious sounds. HEART: S1, S2. Normal rate and rhythm. No murmurs, rubs or gallops. ABDOMEN: Soft, nontender and nondistended. Bowel sounds are present. EXTREMITIES: No clubbing. No cyanosis. Peripheral pulses 2+ felt bilaterally. NEUROLOGIC: The patient is alert and oriented to person, place, month and year. Speech is fluent without any errors. Cranial nerves II through XII intact. Motor exam: Moves all extremities equally. Toes are downgoing bilaterally. No dysmetria noted. DTRs are 2+ throughout. Gait is deferred for now. ASSESSMENT AND PLAN: This is a 58-year-old man with history of hypertension, who recently was in [facility] on 08/23/2018 for intractable dizziness, which was secondary to numerous small infarcts in the bilateral cerebellar hemispheres as well as the right thalamus and the bilateral occipital lobes, which was compatible with embolic infarction affecting the bilateral posterior cerebral arteries and deep right middle cerebral artery branches. His carotid Doppler showed 20-39% proximal internal carotid artery stenosis and antegrade flow in vertebral arteries and had a loop recorder implantation by Cardiology to evaluate for arrhythmias causing the embolic infarcts. He also underwent a hypercoagulable workup. He came in, readmitted to the hospital due to bleeding from the loop recorder incision and was given fresh frozen plasma and vitamin K. 1. At this time, we will await Cardiology's recommendations and we will start a lower dose of Coumadin when cleared by Cardiology for embolic prevention. In addition, baby aspirin 81 mg and Lipitor 40 mg for stroke prevention. 2. Follow up with Cardiology. 3. Physical therapy, occupational therapy evaluation. Thank you for this consult. Camden Jimenez MD
[2018-08-27] MEDS: cefTRIAXone 1 gm 1 GM/100 ML BAG IVPB SCH (12:47)
--- NOTE | 2018-08-27 14:27 | CP.PCM.CON ---
<Ryan Hendrickson - Last Filed: 08/27/18 16:04> History of Present Illness - History of Present Illness History of Present Illness: General Surgery consult note for Dr. Lange Patient is a 58 year old male with past medical history of cerebellar embolic stroke and GERD, presenting with bleeding over the loop recorder insertion site. Patient was recently discharged after suffering a stroke and Dr. Trejo had placed a loop Monitor in the anterior chest prior to discharge. Patient states that he woke up to a pool of blood over his chest and soaked his sheets 2 days ago. Patient's coumadin and lovenox are currently being held. Patient denies hematuria, hematochezia, or any bleeding other than the loop recorder insertion site. He further denies chest pain, dizziness, palpitations, shortness of breath, hearing or vision changes, cough, fever, chills, nausea, vomiting, or urinary symptoms. Otherwise, 12 point review of system was negative. PMD: Dr. Ricketts PMH: cerebellar embolic stroke, GERD Past surgical history: tonsillectomy Social History: occasional cigar smoker and drinks alcohol socially. Denies drug use. 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 Allergies:NKDA Past Patient History - Infectious Disease Hx of Infectious Diseases: None - Past Social History Smoking Status: Never Smoked - CARDIAC Hx Cardiac Disorders: No Hx Angina: No Hx Cardia Arrhythmia: No Hx Circulatory Problems: No Hx Congestive Heart Failure: No Hx Heart Murmur: No Hx Heart Transplant: No Hx Hypercholesterolemia: No Hx Hypertension: No Hx Internal Defibrillator: No Hx Mitral Valve Prolapse: No Hx Pacemaker: No Hx Peripheral Edema: No Hx Peripheral Vascular Disease: No Other/Comment: Loop Recorder - PULMONARY Hx Respiratory Disorders: No Hx Asthma: No Hx Bronchitis: No Hx Chronic Obstructive Pulmonary Disease (COPD): No Hx Emphysema: No Hx Pneumonia: No Hx Respiratory Aspiration: No Hx Respiratory Tract Infection: No Hx Sleep Apnea: No Hx Tuberculosis: No - NEUROLOGICAL Hx Neurological Disorder: Yes HX Cerebrovascular Accident: Yes Other/Comment: ringing in ears - HEENT Hx HEENT Problems: No Hx Blind: No Hx Cataracts: No Hx Deafness: No Hx Difficulty Chewing: No Hx Epistaxis: No Hx Glaucoma: No Hx Macular Degeneration: No - RENAL Hx Chronic Kidney Disease: No Hx Dialysis: No Hx Kidney Stones: No Hx Neurogenic Bladder: No Hx Pyelonephritis: No Hx Renal (Kidney) Cancer: No Hx Renal Failure: No - ENDOCRINE/METABOLIC Hx Endocrine Disorders: No Hx Adrenal Cancer: No Hx Diabetes Insipidus: No Hx Diabetes Mellitus Type 1: No Hx Diabetes Mellitus Type 2: No Hx Hyperthyroidism: No Hx Hypothyroidism: No Hx Systemic Lupus Erythematosus: No - HEMATOLOGICAL/ONCOLOGICAL Hx Blood Disorders: No Hx AIDS: No Hx Anemia: No Hx Cancer: No Hx Chemotherapy: No Hx Cirrhosis: No Hx Hemophilia: No Hx Hepatitis A: No Hx Hepatitis B: No Hx Hepatitis C: No Hx Human Immunodeficiency Virus (HIV): No Hx Metastesis: No Hx Shingles: No Hx Sickle Cell Disease: No Hx Unexplained Bleeding: No - INTEGUMENTARY Hx Dermatological Problems: No Hx Basil Cell: No Hx Eczema: No Hx Melanoma: No Hx Psoriasis: No Hx Squamous Cell: No - MUSCULOSKELETAL/RHEUMATOLOGICAL Hx Musculoskeletal Disorders: No Hx Arthritis: No Hx Back Pain: No Hx Degenerative Joint Disease: No Hx Falls: No Hx Fractures: No Hx Gout: No Hx Herniated Disk: No Hx Myasthenia Gravis: No Hx Osteoarthritis: No Hx Osteomyelitis: No Hx Osteoporosis: No Hx Rhabdomyolysis: No Hx Spinal Stenosis: No Hx Unsteady Gait: No - GASTROINTESTINAL Hx Gastrointestinal Disorders: No Hx Colostomy: No Hx Crohn's Disease: No Hx Diverticulitis: No Hx Gall Bladder Disease: No Hx Gastroesophageal Reflux: No Hx Ileostomy: No Hx Liver Failure: No Hx Pancreatitis: No HX Swallowing Problems: No Hx Ulcer: No - GENITOURINARY/GYNECOLOGICAL Hx Genitourinary Disorders: No Hx Hematuria: No Hx Incontinence: No Hx Prostate Problems: No Hx Sexually Transmitted Disorders: No Hx Urinary Tract Infection: No - PSYCHIATRIC Hx Psychophysiologic Disorder: No Hx Anxiety: No Hx Bipolar Disorder: No Hx Depression: No Hx Emotional Abuse: No Hx Hallucinations: No Hx Panic Symptoms: No Hx Paranoia: No Hx Post Traumatic Stress Disorder: No Hx Psychosis: No Hx Physical Abuse: No Hx Schizophrenia: No Hx Sexual Abuse: No Hx Substance Use: No - SURGICAL HISTORY Hx Surgeries: No Hx Amputation: No Hx Appendectomy: No Hx Cardiac Catheterization: No Hx Cholecystectomy: No Hx Coronary Stent: No Hx Gastric Bypass Surgery: No Hx Hysterectomy: No Hx Joint Replacement: No Hx Kidney Transplant: No Hx Liver Transplant: No Hx Mastectomy: No Hx Musculoskeletal Surgery: No Hx Open Heart Surgery: No Hx Orthopedic Surgery: No Hx Splenectomy: No Hx Valve Replacement: No - ANESTHESIA Hx Anesthesia: No Meds Allergies/Adverse Reactions: Allergies Allergy/AdvReac Type Severity Reaction Status Date / Time No Known Allergies Allergy Unverified 08/21/18 20:44 - Medications Medications: Current Medications Acetaminophen (Tylenol 325mg Tab) 650 mg PO Q6H PRN PRN Reason: Fever >100.4 F Atorvastatin Calcium (Lipitor) 10 mg PO DIN [facility] Diphenhydramine HCl (Benadryl) 25 mg PO HS PRN PRN Reason: Insomnia Sodium Chloride (Sodium Chloride 0.9%) 1,000 mls @ 100 mls/hr IV .Q10H [facility] Last Admin: 08/27/18 08:39 Dose: 100 mls/hr Ceftriaxone Sodium (Rocephin 1 Gram Ivpb) 1 gm in 100 mls @ 100 mls/hr IVPB DAILY RAMON; Protocol Stop: 08/31/18 10:59 Last Admin: 08/27/18 12:47 Dose: 100 mls/hr Physical Exam - Constitutional Appears: Well, Non-toxic, No Acute Distress - Head Exam Head Exam: ATRAUMATIC, NORMOCEPHALIC - Eye Exam Eye Exam: Normal appearance - ENT Exam ENT Exam: Mucous Membranes Moist - Respiratory Exam Respiratory Exam: NORMAL BREATHING PATTERN. absent: Accessory Muscle Use, Respiratory Distress - Cardiovascular Exam Cardiovascular Exam: RRR - GI/Abdominal Exam GI & Abdominal Exam: Soft. absent: Distended, Guarding, Tenderness - Extremities Exam Extremities exam: Positive for: normal inspection - Neurological Exam Neurological exam: Alert, Oriented x3 - Psychiatric Exam Psychiatric exam: Normal Affect, Normal Mood - Skin Additional comments: Chest bandage soaked with blood and blood clots. No active bleeding appreciated. Results - Vital Signs Recent Vital Signs: Last Vital Signs Temp 98.2 F 08/27/18 12:00 Pulse 84 08/27/18 12:00 Resp 21 08/27/18 12:00 BP 117/68 08/27/18 12:00 Pulse Ox 99 08/27/18 05:48 - Labs Result Diagrams: 08/27/18 05:30 08/27/18 05:30 Labs: Laboratory Results - last 24 hr 08/26/18 08/26/18 08/27/18 14:00 17:35 05:30 WBC 10.9 9.2 RBC 3.96 3.52 Hgb 12.0 L D 10.3 L Hct 35.5 L 31.5 L MCV 89.6 89.5 MCH 30.3 29.3 MCHC 33.8 32.7 RDW 13.7 13.6 Plt Count 201 187 MPV 11.0 11.2 H PT INR Sodium Potassium Chloride Carbon Dioxide Anion Gap BUN Creatinine Est GFR ( Amer) Est GFR (Non-Af Amer) Random Glucose Calcium Total Bilirubin AST ALT Alkaline Phosphatase Total Protein Albumin Globulin Albumin/Globulin Ratio Blood Type Confirm A POSITIVE 08/27/18 08/27/18 05:30 05:30 WBC RBC Hgb Hct MCV MCH MCHC RDW Plt Count MPV PT 23.0 H INR 1.97 Sodium 138 Potassium 3.7 Chloride 106 Carbon Dioxide 27 Anion Gap 9 L BUN 18 Creatinine 0.7 L Est GFR ( Amer) > 60 Est GFR (Non-Af Amer) > 60 Random Glucose 89 Calcium 8.4 Total Bilirubin 0.5 AST 32 ALT 38 Alkaline Phosphatase 39 Total Protein 6.1 Albumin 3.3 Globulin 2.8 Albumin/Globulin Ratio 1.2 Blood Type Confirm Assessment & Plan - Assessment and Plan (Free Text) Assessment: Patient is a 58 year old male with past medical history of cerebellar embolic stroke and GERD, presenting with bleeding over the loop recorder insertion site. Patient received vitamin K and 2 units of FFP. Plan: - Continue to hold anticoagulants - Recommend giving FFP to correct coagulopathy - NPO after midnight - Plan for surgery tomorrow at 1PM Case discussed with Dr. Nazario Hendrickson DO PGY-1 <Ramana Lange - Last Filed: 08/27/18 21:16> Meds - Medications Medications: Current Medications Acetaminophen (Tylenol 325mg Tab) 650 mg PO Q6H PRN PRN Reason: Fever >100.4 F Atorvastatin Calcium (Lipitor) 10 mg PO DIN [facility] Last Admin: 08/27/18 17:44 Dose: 10 mg Diphenhydramine HCl (Benadryl) 25 mg PO HS PRN PRN Reason: Insomnia Sodium Chloride (Sodium Chloride 0.9%) 1,000 mls @ 100 mls/hr IV .Q10H [facility] Last Admin: 08/27/18 17:44 Dose: 100 mls/hr Ceftriaxone Sodium (Rocephin 1 Gram Ivpb) 1 gm in 100 mls @ 100 mls/hr IVPB DAILY RAMON; Protocol Stop: 08/31/18 10:59 Last Admin: 08/27/18 12:47 Dose: 100 mls/hr Results - Vital Signs Recent Vital Signs: Last Vital Signs Temp 99.1 F 08/27/18 18:00 Pulse 77 08/27/18 18:00 Resp 21 08/27/18 18:00 BP 124/83 08/27/18 18:00 Pulse Ox 99 08/27/18 05:48 - Labs Result Diagrams: 08/27/18 05:30 08/27/18 05:30 Labs: Laboratory Results - last 24 hr 08/27/18 08/27/18 08/27/18 05:30 05:30 05:30 WBC 9.2 RBC 3.52 Hgb 10.3 L Hct 31.5 L MCV 89.5 MCH 29.3 MCHC 32.7 RDW 13.6 Plt Count 187 MPV 11.2 H PT 23.0 H INR 1.97 Sodium 138 Potassium 3.7 Chloride 106 Carbon Dioxide 27 Anion Gap 9 L BUN 18 Creatinine 0.7 L Est GFR ( Amer) > 60 Est GFR (Non-Af Amer) > 60 Random Glucose 89 Calcium 8.4 Total Bilirubin 0.5 AST 32 ALT 38 Alkaline Phosphatase 39 Total Protein 6.1 Albumin 3.3 Globulin 2.8 Albumin/Globulin Ratio 1.2 Assessment & Plan - Assessment and Plan (Free Text) Assessment: Post op (Loop Recorder-2days) bleeding/overanticoagulation Possible infected pocket Pt needs wound wxploration-c/s-removal loop recorder Plan OR 08/28/2018 This consult done under my supervision Eda DOZIER - Date & Time Date: 08/27/18 Time: 21:13
--- NOTE | 2018-08-27 14:59 | PN ---
DATE: 08/27/2018 SUBJECTIVE: The patient is 58 years old, seen and examined. No dizziness, no chest pain. He has a compression bandage on his chest where he was bleeding. No weakness or numbness. Complained of feeling just generalized weakness. PHYSICAL EXAMINATION: VITAL SIGNS: He is afebrile, pulse 68, respirations 18, blood pressure 110/73. LUNGS: Bilateral fair airflow. No rhonchi or crackle. HEART: S1 and S2 audible. ABDOMEN: Soft. Nontender. No rebound. No guarding. NEUROLOGICAL: The patient is awake and alert, communicative. EXTREMITIES: Bilateral legs, no edema. He is able to move all extremities. LABORATORY DATA: WBC is 9.2, hemoglobin 10.3, hematocrit 31.5, platelet 183. PT is 23, INR 1.97. Chemistry: Sodium 138, potassium 3.7, chloride 106, CO2 of 27, BUN 18, creatinine 0.7, blood sugar of 89. ASSESSMENT: 1. Status post embolic stroke. The patient was started on anticoagulant, and started to bleed profusely from his insertion site of loop recorder. 2. Vertigo and dizziness that has almost resolved. 3. Anemia. PLAN: We will continue to monitor his CBC, CMP periodically. Currently, he is off of anticoagulant. We will follow up CBC and CMP in the a.m. Carri Ricketts MD
[2018-08-27] MEDS ORDERED: Magnesium Citrate Oral SOL (300 ml) PO ONE (15:27)
--- NOTE | 2018-08-28 00:16 | CON ---
DATE: 08/27/2018 REQUESTING PHYSICIAN: Dr. Ricketts. REASON FOR CONSULTATION: Embolic stroke, bleeding from the loop recorder site. HISTORY OF PRESENT ILLNESS: Mr. Bolanos is a 58-year-old male recently discharged from the hospital when he was admitted with embolic stroke. He was started on anticoagulation with Lovenox and Coumadin. He presented to the ED on 08/26/2018 with bleeding from the loop recorder site. INR was therapeutic at 2.1. He received FFP and vitamin K. INR is subtherapeutic now, no bleeding. He was evaluated by Dr. Lange today and is planned to go for surgery tomorrow for possible removal of the loop recorder. Loop recorder was placed as a part of workup for embolic stroke. Thrombophilia workup was done during the last admission. TENZIN is negative. Protein C, protein S levels were normal. Rest of the thrombophilia workup is pending. Antiphospholipid antibodies also negative. PAST MEDICAL HISTORY: Embolic stroke, recent. PAST SURGICAL HISTORY: Placement of loop recorder. FAMILY HISTORY: Noncontributory. PERSONAL HISTORY: Never smoked. No history of alcohol abuse. ALLERGIES: NO KNOWN DRUG ALLERGIES. REVIEW OF SYSTEMS: As per HPI. Rest of 12-point review of systems reviewed, negative. PHYSICAL EXAMINATION GENERAL: Comfortable in bed, in no acute distress. VITAL SIGNS: Temperature 98.4, heart rate 62 per minute, respiratory rate 18 per minute, blood pressure 142/92, pulse ox is 97% on room air. HEENT: No pallor. NECK: No lymphadenopathy. CHEST: Air entry present, equal and bilateral. No added sounds. CARDIOVASCULAR: S1, S2 normal. No murmur, no gallop. ABDOMEN: Soft. Nontender. No hepatosplenomegaly. EXTREMITIES: No edema. 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 No focal or sensory motor deficits. LABORATORY DATA: On admission white count 10.5, hemoglobin 14.7, hematocrit 43.5, platelet 221, hemoglobin now is 10.3, platelet 187. Sodium 138, potassium 3.7, creatinine 0.7. LFTs within normal limits. INR on admission 2.3, now . CURRENT MEDICATIONS: Tylenol 650 every 6 hours p.r.n., Lipitor 10 mg daily, ceftriaxone 1 g daily, Benadryl p.r.n., IV fluid at 100 mL an hour. ASSESSMENT: 1. History of recent embolic stroke. 2. Bleeding from the loop recorder site. 3. Coagulopathy. 4. Anemia. PLAN: He had bleeding from the loop recorder site which is likely due to anticoagulation use. INR was therapeutic at 2.3. He received FFP and vitamin K and INR is 1.9 today. He is going for surgery tomorrow to identify the source of bleeding by Dr. Lange. Hemoglobin declined to 10.3, previously 14.7. We will continue to monitor hemoglobin, hematocrit. LFTs within normal limits. He had embolic stroke. Anticoagulation will be resumed as soon as hemostasis achieved. Thrombophilia workup pending. PT/INR in the morning. Thank you Dr. Ricketts for allowing us to participate in Mr. Bolanos's care. We will continue to follow. Discussed wtih Mr. Bolanos, answered all his questions to his satisfaction. at bedside had lot of questions too, answered all her questions. Lin Rudolph MD
--- NOTE | 2018-08-28 01:31 | CON ---
DATE: 08/27/2018 REASON FOR CONSULTATION: Cardiac evaluation, status post loop recorder, status post bleeding and hematoma of the chest wall, on Lovenox and Coumadin. BRIEF CLINICAL HISTORY: This is a 58-year-old male who recently discharged from the hospital after having the loop recorder was placed in where the patient was admitted with dizziness, found to be multiple bilateral occipital and cerebral lobe infarct, thought to be thromboembolic in nature; loop recorder was placed and the patient was started on Lovenox and Coumadin, sent home. Yesterday, the patient woke up with blood clot in the sheet; probably, he scratched the site of the loop recorder and then the hematoma expanded to the chest wall. In the ER, INR found to be 2.3; so, vitamin K was given, 2 units FFP was given. The patient denies any chest pain, shortness of breath or any palpitation. Denies any dizziness. PAST MEDICAL HISTORY: Significant for recent history of thromboembolic stroke in occipital and cerebellar lobe, status post loop recorder placed. RECENT WORKUP: As follows: The patient had an echocardiography done on 08/23/2018 that revealed ejection fraction 55%, trace mitral regurgitation, trace tricuspid regurgitation, trace aortic regurgitation, RV systolic pressure of 29, intact intraatrial septum by color flow and bubble study. The patient had loop recorder done on 08/23/2018, that is last and was discharged on Lovenox and Coumadin. Admitting INR was 2.33. REVIEW OF SYSTEMS: As per HPI. PHYSICAL EXAMINATION: VITAL SIGNS: Height of the patient is 5 feet 9 inches, weight of the patient is 189 pounds, body mass index 27.9 kg/sq m. Temperature afebrile, heart rate 84, blood pressure 117/68. HEENT: PERRLA. Extraocular muscles intact. NECK: Supple. No carotid bruits or thyromegaly. CHEST: Wrapped in the dressing, hematoma noted, blood-soaked dressing noted. HEART: S1 and S2 regular. ABDOMEN: Soft. EXTREMITIES: Clubbing and cyanosis negative. LABORATORY DATA: EKG showed normal sinus rhythm. No acute ST-T changes noted. Blood workup as follows; WBC 9.8, hemoglobin 10.3, hematocrit 31.5, platelet count 187. Coagulation profile INR at 2.33, INR today is 1.97. Chemistry shows sodium 130, potassium 3, chloride 106, carbon dioxide 27, anion gap of 9, BUN 18, creatinine 0.7. IMPRESSION: The patient was therapeutic INR as well as getting Lovenox, history of loop recorder, hematoma to the site of the loop recorder, history of thromboembolic stroke. Recent echo was in normal limit. RECOMMENDATIONS: We will give the vitamin K one dose now stat, surgical consult with Dr. Vo for evacuation of hematoma. Since the patient has a recent history of thromboembolic stroke, if the bleeding stop, we will hold Coumadin for now and follow up and restart Coumadin once the hematoma is stopped and surgical evaluation done. Also, we will put cold compression to the chest. We will follow with you. Once surgical evacuation is done if required, then we will restart Coumadin. No need of blood transfusion because H and H are stable. We will repeat CBC in the morning. We will also get mag phos level in the morning. We will follow with you. Thank you, Dr. Ricketts, for providing us the opportunity in taking care of the patient, Micah Bolanos. Lan Trejo MD
[2018-08-28 06:30] LABS: BASO # 0.03 K/mm3 (0.0-2.0); BASO % 0.4 % (0.0-3.0); EOS # 0.1 (0.0-0.7); EOS % 1.6 % (1.5-5.0); GRAN # 4.97 (1.4-6.5); HEMOGLOBIN 10.2 g/dL (14.0-18.0); LYMPH # 2.5 (1.2-3.4); LYMPH % 30.9 % (22.0-35.0); MEAN CELL VOLUME 89.1 fl (80.0-105.0); MEAN CORPUSCULAR HEMOGLOBIN 29.9 pg (25.0-35.0); MEAN CORPUSCULAR HGB CONC 33.6 g/dl (31.0-37.0); MEAN PLATELET VOLUME 11.1 fl (7.0-11.0); MONO # 0.4 (0.1-0.6); MONO % 5.1 % (1.0-6.0); RBC 3.41 10^6/uL (3.5-6.1); RED CELL DISTRIBUTION WIDTH 13.4 % (11.5-14.5)
[2018-08-28 06:31] LABS: INR 1.48; PROTHROMBIN TIME 17.1 SECONDS (9.4-12.5)
[2018-08-28 07:23] LABS: ALB/GLOB RATIO 1.2 (1.1-1.8); ALBUMIN 3.2 g/dL (3.0-4.8); ALT/SGPT 61 U/L (7-56); AST/SGOT 57 U/L (17-59); BLOOD UREA NITROGEN 13 mg/dL (7-21); CALCIUM 8.5 mg/dL (8.4-10.5); GFR NON-AFRICAN AMERICAN > 60
--- NOTE | 2018-08-28 10:19 | CP.PCM.PCO ---
Physician Communication Note - Physician Communication Note Physician Communication Note: HGB 14.7-10.2/needs OR today-Pt concur
[2018-08-28] MEDS: cefTRIAXone 1 gm 1 GM/100 ML BAG IVPB SCH (10:37)
[2018-08-28] MEDS ORDERED: Ketamine 10 mg/ml Inj (20 ml) ONE (13:45)
[2018-08-28] MEDS ORDERED: Midazolam 2 MG/2 ML VIAL ONE (13:47)
[2018-08-28] MEDS ORDERED: Propofol 10 mg/ml Inj (20 ML) ONE (13:50)
[2018-08-28] MEDS ORDERED: Bupivacaine 0.5% Inj(30mL) IJ ONE (13:50)
--- NOTE | 2018-08-28 14:35 | PN ---
DATE: 08/28/2018 SUBJECTIVE: The patient is 58 years old, who came in with bleeding from the incision site of loop recorder placement. He was on double coverage after he had embolic stroke. He was given FFP. Vitamin K is on hold. PHYSICAL EXAMINATION: GENERAL: On examination today, he is awake, alert, oriented, communicative. VITAL SIGNS: He is afebrile, pulse 67, respirations 20, blood pressure 129/84. LUNGS: Bilateral good airflow. No rhonchi or crackle. HEART: S1 and S2 audible. ABDOMEN: Soft. Nontender. No rebound. No guarding. NEUROLOGICAL: He is awake, alert, oriented. Complained of having generalized weakness. He had pressure bandage on his chest. LABORATORY EXAM: WBC is 8, hemoglobin 10.2, hematocrit 30.4, platelet of 18. PT 17.1, INR 1.42. Chemistry: Sodium 138, potassium 4.1, chloride 107, CO2 of 26, BUN 13, creatinine 0.6, blood sugar of 85. ASSESSMENT: 1. Bleeding from surgical site. 2. Status post embolic stroke, status post loop recorder placement. PLAN: Currently, his anticoagulation is on hold. The patient is being taken to OR to look at his hematoma. In the meantime, we will continue the patient on statin. He has been started on IV antibiotic, analgesic as needed. We will follow up H and H and CBC in the a.m. Carri Ricketts MD
[2018-08-28] MEDS ORDERED: Oxycodone/Acetaminophen 5/325 mg Tab PO PRN (14:37)
--- NOTE | 2018-08-28 14:37 | PCM.SURG1 ---
Surgeon's Initial Post Op Note - Surgeon's Notes Surgeon: Dr. Lange Tag Marker: Dr. Charles PGY3 Type of Anesthesia: IV Sedation Pre-Operative Diagnosis: bleeding insertion site of loop recorder Operative Findings: see operative report Post-Operative Diagnosis: same Operation Performed: exploration of wound site and site of insertion of loop recorder Specimen/Specimens Removed: loop recorder. wound culture Estimated Blood Loss: EBL {In ML}: 5 Blood Products Given: N/A Drains Used: No Drains Date of Surgery/Procedure: 08/28/18 Time of Surgery/Procedure: 14:37
--- NOTE | 2018-08-28 14:52 | PN ---
DATE: 08/28/2018 REASON FOR THE CONSULTATION AND FOLLOWUP: Cardiac evaluation, status post loop recorder, status post bleeding and hematoma on the chest wall and the bleeding from the site of loop recorder, was on Lovenox and Coumadin. SUBJECTIVE: The patient denies any further episode of bleeding. Last time, he changed the shirt yesterday and since then there is no further episode of bleeding noted, scheduled to go to the OR today for exploration and removal of hematoma. PHYSICAL EXAMINATION: VITAL SIGNS: Temperature afebrile, heart rate 64, blood pressure 119/78. HEENT: PERRLA. Extraocular muscles intact. NECK: Supple. No carotid bruits or thyromegaly. CHEST: Clear to auscultation. HEART: S1, S2 regular. ABDOMEN: Soft. EXTREMITIES: Clubbing and cyanosis negative. LABORATORY DATA: WBC 8, hemoglobin 10.2, hematocrit 30.4, platelet count 181. Chemistry shows sodium 130, potassium , chloride 107, carbon dioxide 26, anion gap of 9, BUN 13, creatinine 0.6. 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 The patient readmitted here with bleeding at site of loop recorder, INR was therapeutic. The patient was on Lovenox and Coumadin. However, coagulable state is in progress. No further episode of bleeding noted, bleeding stopped. The patient dropped total 4 g of hemoglobin, admitting 14.7, today is 10.2, which is stable since yesterday, yesterday was also 10.3 in the morning and today it is 10.2. RECOMMENDATIONS: The patient is off anticoagulation, repeat INR today is 1.48 given 5 mg of p.o. vitamin K was given yesterday. The patient is also getting antibiotics for exploration of hematoma and removal of hematoma today as scheduled at 1 o'clock OR. Further recommendation depend upon hospital course. We will follow with you. Discussed at length with the patient and the patient's family concerned about the removal of loop recorder as well. As mentioned that decision will be made by the surgeon during the OR with the possible loop recorder. If it is further recommended we can reimplant after having the surgical evaluation and evacuation, we will discuss further management. We will follow with you. Repeat blood workup in the morning. Thank you, Dr. Ricketts, for providing us the opportunity in taking care of the patient, Micah Bolanos. Lan Trejo MD
[2018-08-28] MEDS: Docusate-Senna 50 mg-8.6 mg Tab PO SCH (17:19)
[2018-08-28] MEDS: Sodium Chloride 0.9% 1,000 ML IV SCH (17:20)
[2018-08-29 07:15] LABS: BASO # 0.01 K/mm3 (0.0-2.0); BASO % 0.1 % (0.0-3.0); EOS # 0.1 (0.0-0.7); EOS % 1.1 % (1.5-5.0); GRAN # 8.33 (1.4-6.5); GRAN % 76.9 % (50.0-68.0); LYMPH # 1.8 (1.2-3.4); LYMPH % 16.6 % (22.0-35.0); MEAN CELL VOLUME 88.6 fl (80.0-105.0); MEAN CORPUSCULAR HEMOGLOBIN 29.9 pg (25.0-35.0); MEAN CORPUSCULAR HGB CONC 33.8 g/dl (31.0-37.0); MEAN PLATELET VOLUME 11.3 fl (7.0-11.0); MONO # 0.6 (0.1-0.6); MONO % 5.3 % (1.0-6.0); RBC 3.34 10^6/uL (3.5-6.1); RED CELL DISTRIBUTION WIDTH 13.5 % (11.5-14.5); WHITE BLOOD COUNT 10.8 10^3/ul (4.5-11.0)
[2018-08-29 07:21] LABS: INR 1.22; PROTHROMBIN TIME 14.1 SECONDS (9.4-12.5)
[2018-08-29 07:31] LABS: ALB/GLOB RATIO 1.3 (1.1-1.8); ALBUMIN 3.2 g/dL (3.0-4.8); ALT/SGPT 62 U/L (7-56); AST/SGOT 43 U/L (17-59); BLOOD UREA NITROGEN 12 mg/dL (7-21); CALCIUM 8.6 mg/dL (8.4-10.5); GFR NON-AFRICAN AMERICAN > 60
[2018-08-29] MEDS: cefTRIAXone 1 gm 1 GM/100 ML BAG IVPB SCH (09:11)
[2018-08-29] MEDS: Docusate-Senna 50 mg-8.6 mg Tab PO SCH ×2 (09:11→17:24)
[2018-08-29] MEDS: Sodium Chloride 0.9% 1,000 ML IV SCH ×3 (09:12→11:53)
--- NOTE | 2018-08-29 11:47 | CP.PCM.PN ---
<David Genao - Last Filed: 08/29/18 11:42> Subjective - Date & Time of Evaluation Date of Evaluation: 08/29/18 Time of Evaluation: 11:42 - Subjective Subjective: General Surgery Progress note for Dr. Lange This 58M was seen and examined this Am at bedside no acute events overnight. He has a blood stained dressing that was changed during rounds. He denies chest pain SOB nausea vomiting or any new or concerning symptoms. Objective - Vital Signs/Intake and Output Vital Signs (last 24 hours): Temp Pulse Resp BP Pulse Ox 98.1 F 77 20 122/89 97 08/29/18 06:00 08/29/18 06:00 08/29/18 06:00 08/29/18 06:00 08/29/18 06:00 Intake and Output: 08/29/18 08/29/18 06:59 18:59 Intake Total 1920 Output Total 200 Balance 1720 - Medications Medications: Current Medications Atorvastatin Calcium (Lipitor) 10 mg PO DIN [facility] Last Admin: 08/28/18 17:19 Dose: 10 mg Diphenhydramine HCl (Benadryl) 25 mg PO HS PRN PRN Reason: Insomnia Ceftriaxone Sodium (Rocephin 1 Gram Ivpb) 1 gm in 100 mls @ 100 mls/hr IVPB DAILY [facility]; Protocol Stop: 08/31/18 10:59 Last Admin: 08/29/18 09:11 Dose: 100 mls/hr Sodium Chloride (Sodium Chloride 0.9%) 1,000 mls @ 100 mls/hr IV .Q10H [facility] Last Admin: 08/29/18 09:12 Dose: 100 mls/hr Oxycodone/Acetaminophen (Percocet 5/325 Mg Tab) 1 tab PO Q4H PRN PRN Reason: Pain, moderate (4-7) Stop: 08/31/18 14:38 Senna/Docusate Sodium (Senokot S 50 Mg-8.6 Mg) 1 tab PO BID [facility] Last Admin: 08/29/18 09:11 Dose: Not Given Warfarin Sodium (Coumadin) 2.5 mg PO 1800 [facility]; Protocol - Labs Labs: 08/29/18 06:30 08/29/18 06:30 PT 14.1 SECONDS (9.4-12.5) H 08/29/18 06:30 INR 1.22 08/29/18 06:30 APTT 35.4 Seconds (25.1-36.5) 08/26/18 08:30 - Constitutional Appears: Non-toxic, No Acute Distress - Head Exam Head Exam: ATRAUMATIC, NORMOCEPHALIC - Eye Exam Eye Exam: EOMI - ENT Exam ENT Exam: Mucous Membranes Moist - Respiratory Exam Respiratory Exam: NORMAL BREATHING PATTERN - Cardiovascular Exam Cardiovascular Exam: +S1, +S2 - GI/Abdominal Exam GI & Abdominal Exam: Soft. absent: Firm, Guarding, Rigid, Tenderness - Neurological Exam Neurological Exam: Alert, Awake - Psychiatric Exam Psychiatric exam: Normal Affect, Normal Mood - Skin Skin Exam: Dry, Intact Assessment and Plan - Assessment and Plan (Free Text) Assessment: This is a 58M POD1 s/p wound exploration and hemorrhage control after loop recorder placement Wound check AM coags Will continue to monitor D/W Dr. Nazario Genao PGY3 <Ramana Lange - Last Filed: 08/30/18 07:09> Objective - Vital Signs/Intake and Output Vital Signs (last 24 hours): Temp Pulse Resp BP Pulse Ox 98.6 F 75 18 121/82 96 08/29/18 23:18 08/29/18 23:18 08/29/18 23:18 08/29/18 23:18 08/29/18 23:18 Intake and Output: 08/30/18 08/30/18 06:59 18:59 Intake Total 420 Balance 420 - Medications Medications: Current Medications Atorvastatin Calcium (Lipitor) 10 mg PO DIN [facility] Last Admin: 08/29/18 17:24 Dose: 10 mg Diphenhydramine HCl (Benadryl) 25 mg PO HS PRN PRN Reason: Insomnia Last Admin: 08/29/18 21:49 Dose: 25 mg Ceftriaxone Sodium (Rocephin 1 Gram Ivpb) 1 gm in 100 mls @ 100 mls/hr IVPB DAILY [facility]; Protocol Stop: 08/31/18 10:59 Last Admin: 08/29/18 09:11 Dose: 100 mls/hr Oxycodone/Acetaminophen (Percocet 5/325 Mg Tab) 1 tab PO Q4H PRN PRN Reason: Pain, moderate (4-7) Stop: 08/31/18 14:38 Senna/Docusate Sodium (Senokot S 50 Mg-8.6 Mg) 1 tab PO BID [facility] Last Admin: 08/29/18 17:24 Dose: 1 tab Warfarin Sodium (Coumadin) 4 mg PO 1800 [facility]; Protocol Last Admin: 08/29/18 17:24 Dose: 4 mg - Labs Labs: 08/29/18 06:30 08/29/18 06:30 PT 14.1 SECONDS (9.4-12.5) H 08/29/18 06:30 INR 1.22 08/29/18 06:30 APTT 35.4 Seconds (25.1-36.5) 08/26/18 08:30 Assessment and Plan - Assessment and Plan (Free Text) Assessment: Plan leave packing in 24 hrs and restart low dose coumadin(2.5) Eda Lange MD FACS
--- NOTE | 2018-08-29 13:06 | PN ---
DATE: 08/29/2018 REASON FOR THE CONSULTATION AND FOLLOWUP: Cardiac evaluation, status post loop recorder, stress test large hematoma, status post evacuation of hematoma. SUBJECTIVE: The patient denies any chest pain, shortness of breath or any palpitations. OBJECTIVE: GENERAL: Not in apparent distress. VITAL SIGNS: Temperature afebrile, heart rate 77, blood pressure . HEENT: PERRLA intact.. NECK: Supple. No carotid bruit or thyromegaly. CHEST: Clear to auscultation. HEART: S1, S2 regular. ABDOMEN: Soft. EXTREMITIES: Clubbing and cyanosis negative. LABORATORY DATA: Blood workup as follows: WBC 10.8, hemoglobin 10, hematocrit 29.6, platelet count 184. Chemistry shows sodium 130, potassium 3.9, chloride 104, carbon dioxide 25, anion gap of 11, BUN 12, creatinine 0.7. IMPRESSION: Status post cerebrovascular accident, multiple embolic phenomena, status post lop recorder, status post on Lovenox and Coumadin. The patient later developed hematoma, status post evacuation of hematoma yesterday and exploration by Dr. Vo. RECOMMENDATIONS: As per Heme/Onc and Neurology, appropriately the patient is going to be started again Coumadin, cautious anticoagulation, monitor INR. If the patient remains stable may consider later on reimplantation of loop recorder as an outpatient. We will follow with you. Thank you Dr. Ricketts for providing us the opportunity in taking care of the patient, Micah Bolanos. Lan Trejo MD
--- NOTE | 2018-08-29 16:19 | PN ---
DATE: 08/29/2018 SUBJECTIVE: The patient is 58 years old, seen and examined, had removal of loop recorder yesterday. Currently, was done, the loop recorder was removed, blood cultures were done and pressure dressing is done. PHYSICAL EXAMINATION: GENERAL: Today, he is awake, alert, oriented, communicative. VITAL SIGNS: He is afebrile, pulse 71, respirations 20, blood pressure 122/89. LUNGS: Bilateral fair airflow. No rhonchi or crackle. HEART: S1 and S2 audible. ABDOMEN: Soft. Nontender. No rebound. No guarding. NEUROLOGICAL: The patient is awake, alert, oriented, communicative. LABORATORY DATA: WBC is 10.8, hemoglobin 10, hematocrit 29.6, platelet 184. PT 14.1, INR 1.22. Chemistry: Sodium 136, potassium 3.9, chloride 104, CO2 of 25, BUN 12, creatinine 0.7, blood sugar of 82. LFTs are within normal limit. ASSESSMENT: 1. Status post hemorrhage from the pocket of loop recorder placement, had FFP and vitamin K given. 2. History of embolic stroke causing him extreme dizziness. 3. Blood loss anemia. PLAN: I discussed with Dr. Lange. We will start him on Coumadin his response and if he remains stable, he will be discharged in a.m. The patient is eating and tolerating. I will discontinue his IV fluid, discontinue his telemetry. Carri Ricketts MD
[2018-08-30 07:34] LABS: INR 1.23; PARTIAL THROMBOPLASTIN TIME 23.2 Seconds (25.1-36.5); PROTHROMBIN TIME 14.2 SECONDS (9.4-12.5)
[2018-08-30 08:03] VITALS: PULSE 80; O2SAT 97
--- NOTE | 2018-08-30 08:22 | CP.PCM.PN ---
Subjective - Date & Time of Evaluation Date of Evaluation: 08/30/18 Time of Evaluation: 07:10 - Subjective Subjective: Awake,alert, no distress, denies chest pain Reason for consultation and follow up: Cardiac evaluation status post insertion of loop recorder, admitted due to bleeding from loop recorder site, history of cerebellar embolic stroke Seen and examined by me and Dr. Trejo Objective - Vital Signs/Intake and Output Vital Signs (last 24 hours): Temp Pulse Resp BP Pulse Ox 98.5 F 80 20 118/79 97 08/30/18 06:00 08/30/18 06:00 08/30/18 06:00 08/30/18 06:00 08/30/18 06:00 Intake and Output: 08/30/18 08/30/18 06:59 18:59 Intake Total 420 Balance 420 - Medications Medications: Current Medications Atorvastatin Calcium (Lipitor) 10 mg PO DIN [facility] Last Admin: 08/29/18 17:24 Dose: 10 mg Diphenhydramine HCl (Benadryl) 25 mg PO HS PRN PRN Reason: Insomnia Last Admin: 08/29/18 21:49 Dose: 25 mg Ceftriaxone Sodium (Rocephin 1 Gram Ivpb) 1 gm in 100 mls @ 100 mls/hr IVPB DAILY [facility]; Protocol Stop: 08/31/18 10:59 Last Admin: 08/29/18 09:11 Dose: 100 mls/hr Oxycodone/Acetaminophen (Percocet 5/325 Mg Tab) 1 tab PO Q4H PRN PRN Reason: Pain, moderate (4-7) Stop: 08/31/18 14:38 Senna/Docusate Sodium (Senokot S 50 Mg-8.6 Mg) 1 tab PO BID [facility] Last Admin: 08/29/18 17:24 Dose: 1 tab Warfarin Sodium (Coumadin) 4 mg PO 1800 [facility]; Protocol Last Admin: 08/29/18 17:24 Dose: 4 mg - Labs Labs: 08/29/18 06:30 08/29/18 06:30 PT 14.2 SECONDS (9.4-12.5) H 08/30/18 07:00 INR 1.23 08/30/18 07:00 APTT 23.2 Seconds (25.1-36.5) L 08/30/18 07:00 - Constitutional Appears: Non-toxic, No Acute Distress - Head Exam Head Exam: NORMAL INSPECTION, NORMOCEPHALIC - Eye Exam Eye Exam: Normal appearance - ENT Exam ENT Exam: Mucous Membranes Moist, Normal Exam - Neck Exam Neck Exam: Full ROM, Normal Inspection. absent: Lymphadenopathy - Respiratory Exam Respiratory Exam: Decreased Breath Sounds, Clear to Ausculation Bilateral, NORMAL BREATHING PATTERN - Cardiovascular Exam Cardiovascular Exam: REGULAR RHYTHM, +S1, +S2 Additional comments: mid chest dressing intact - GI/Abdominal Exam GI & Abdominal Exam: Soft, Normal Bowel Sounds - Extremities Exam Extremities Exam: Full ROM, Normal Capillary Refill, Normal Inspection - Neurological Exam Neurological Exam: Alert, Awake, Oriented x3 - Psychiatric Exam Psychiatric exam: Normal Affect, Normal Mood - Skin Skin Exam: Intact, Normal Color, Warm Assessment and Plan - Assessment and Plan (Free Text) Assessment: A 58 year old male who came in to the ER due to bleeding from insertion site of loop recorder. He woke up blood over his chest and face. He was on Coumadin and Lovenox. He was recently discharged from [facility],due to cerebellar embolic stroke.Loop recorder was inserted to evaluate for any arrhythmias. Coumadin and Lovenox stopped. FFP and vitamin K given. Site of loop recorder with hematoma thus Dr. Lange took out the device. History of GERD Plan: no distress, denies chest pain Status post removal of loop recorder Site no bleeding,no hematoma Heart rate and blood pressure stable. Cardiac status stable Will consider reinsertion of loop recorder in the future as outpatient May discharge from cardiac standpoint Follow up in office 1-2 weeks Anticoagulation per hematology () Plan and treatment discussed with Dr. Trejo
[2018-08-30] MEDS: Docusate-Senna 50 mg-8.6 mg Tab PO SCH ×2 (10:15→17:14)
[2018-08-30] MEDS: cefTRIAXone 1 gm 1 GM/100 ML BAG IVPB SCH (10:15)
--- NOTE | 2018-08-30 11:31 | CP.PCM.PN ---
Subjective - Date & Time of Evaluation Date of Evaluation: 08/30/18 Time of Evaluation: 07:00 - Subjective Subjective: Patient seen and examined. No acute events over night. Packing removed. Surgical incision site c/d/i. Objective - Vital Signs/Intake and Output Vital Signs (last 24 hours): Temp Pulse Resp BP Pulse Ox 98.5 F 80 20 118/79 97 08/30/18 06:00 08/30/18 06:00 08/30/18 06:00 08/30/18 06:00 08/30/18 06:00 Intake and Output: 08/30/18 08/30/18 06:59 18:59 Intake Total 420 Balance 420 - Medications Medications: Current Medications Atorvastatin Calcium (Lipitor) 10 mg PO DIN [facility] Last Admin: 08/29/18 17:24 Dose: 10 mg Diphenhydramine HCl (Benadryl) 25 mg PO HS PRN PRN Reason: Insomnia Last Admin: 08/29/18 21:49 Dose: 25 mg Ceftriaxone Sodium (Rocephin 1 Gram Ivpb) 1 gm in 100 mls @ 100 mls/hr IVPB DAILY [facility]; Protocol Stop: 08/31/18 10:59 Last Admin: 08/30/18 10:15 Dose: 100 mls/hr Oxycodone/Acetaminophen (Percocet 5/325 Mg Tab) 1 tab PO Q4H PRN PRN Reason: Pain, moderate (4-7) Stop: 08/31/18 14:38 Senna/Docusate Sodium (Senokot S 50 Mg-8.6 Mg) 1 tab PO BID [facility] Last Admin: 08/30/18 10:15 Dose: Not Given Warfarin Sodium (Coumadin) 4 mg PO 1800 [facility]; Protocol Last Admin: 08/29/18 17:24 Dose: 4 mg - Labs Labs: 08/29/18 06:30 08/29/18 06:30 PT 14.2 SECONDS (9.4-12.5) H 08/30/18 07:00 INR 1.23 08/30/18 07:00 APTT 23.2 Seconds (25.1-36.5) L 08/30/18 07:00 - Constitutional Appears: No Acute Distress - Head Exam Head Exam: NORMOCEPHALIC - Eye Exam Eye Exam: Normal appearance - ENT Exam ENT Exam: Mucous Membranes Moist - Respiratory Exam Respiratory Exam: NORMAL BREATHING PATTERN - Cardiovascular Exam Cardiovascular Exam: +S1, +S2 - GI/Abdominal Exam GI & Abdominal Exam: Soft - Neurological Exam Neurological Exam: Alert, Awake, Oriented x3 - Psychiatric Exam Psychiatric exam: Normal Mood - Skin Skin Exam: Dry, Intact, Warm Assessment and Plan - Assessment and Plan (Free Text) Assessment: 58M s/p wound exploration & loop recorder removal POD 2 Plan: Packing removed No active bleeding nor purulent drainage noted Patient clear for discharge from surgical standpoint Medical management per primary team Further recs per Dr. Nazario Gonzalez PGY3
[2018-08-30] MEDS ORDERED: Enoxaparin 40 mg Syringe SC STA (11:35)
[2018-08-30 15:08] VITALS: BP 113/68; RESP 18; TEMP 98.3
--- NOTE | 2018-08-30 23:00 | PN ---
DATE: 08/30/2018 REASON FOR THE CONSULTATION: Status post loop recorder, status post hematoma with loop recorder, status post evacuation. Now the patient is stable. No further hematoma noted. The patient started on Coumadin. The patient is off loop recorder, discontinued because of the hematoma. Possibly patient is going to be discharged home. We will follow in 2 weeks and will do external loop recorder for four weeks. Discussed with the patient, and number given to the patient for office visit is given. We will follow with you. Thank you, Dr. Ricketts, for providing us the opportunity in taking care of the patient, BolanosMicah. Lan Trejo MD
--- NOTE | 2018-08-31 07:01 | DS ---
HISTORY OF PRESENT ILLNESS: The patient is a 58-year-old who came in with bleeding from the pocket of loop recorder placement. He was on Coumadin plus Lovenox. One day after discharge, he came back with bleeding from the chest wall. He was given 2 FFPs. Coumadin was reversed by 2.5 mg and vitamin K. Pressure bandages were done, he was taken to OR and loop recorder was removed. The patient is doing well. He restarted on Coumadin yesterday, wanted to go home, will be discharged home today, and he will be given Lovenox prior to discharge and he will be given 4 mg of Coumadin today. From tomorrow, he will start Coumadin 3 mg daily and we will see him in the office on Monday to follow up his PT/INR. PHYSICAL EXAMINATION: GENERAL: Today, he is awake, alert, oriented, communicative. VITAL SIGNS: The patient is afebrile, pulse 80, respirations 20, blood pressure 118/79. LUNGS: Bilateral fair airflow. No rhonchi or crackle. HEART: S1 and S2 audible. ABDOMEN: Soft, nontender. No rebound. No guarding. NEUROLOGIC: He is awake and alert, able to communicate, ambulatory. SKIN: His chest wall wound is healing well, no active bleeding. ASSESSMENT: 1. Status post loop recorder removal. 2. History of embolic stroke to occipital and cerebellum. PLAN: The patient is going to be discharged home. He will take Coumadin 3 mg daily and he will follow up in the office on Monday. Carri Ricketts MD
--- NOTE | 2018-09-03 10:28 | CP.PCM.PCO ---
Physician Communication Note - Physician Communication Note Physician Communication Note: CORRECTION:OR 08/28/2018 REMOVAL Recorder not INSERTION
--- NOTE | 2018-09-06 11:48 | PQF ---
PROVIDER RESPONSE TEXT: Due to acute blood loss REVIEWER QUERY TEXT: Anemia Type Anemia is documented in the Medical Record. Please specify the cause (includes suspected or probable cause) Such as: -- Due to acute blood loss -- Due to chronic blood loss -- Due to iron deficiency -- Due to postoperative blood loss -- Due to chronic disease -- Other, please specify The patient's Clinical Indicators include: You document blood loss anemia on your progress note of 08/29. Patient was admitted with post-procedur al bleeding. Please indicate type of blood loss anemia, as listed below. Thank you. Query created by: Marbella Cowart on 08/31/2018 3:30 PM Electronically signed by: Carri Ricketts MD 09/06/2018 11:44 AM
--- NOTE | 2018-09-06 18:29 | OP ---
PROCEDURE DATE: 08/28/2018 SURGEON: Ramana Lange MD. CORPORATE STRATEGY ASSOCIATE: Shon Charles DO, PGY-2. WASTE DUSTER: Elpidio Perdomo DO. ANESTHESIA: MAC - Marcaine 0.5 - 18 mL. PREOPERATIVE DIAGNOSES: 1. Bleeding insertion site (loop recorder) - left anterior chest wall. 2. Hypertensive coronary artery disease. 3. Occipital cerebrovascular accident (probable embolic). POSTOPERATIVE DIAGNOSES: 1. Bleeding insertion site (loop recorder) - left anterior chest wall. 2. Hypertensive coronary artery disease. 3. Occipital cerebrovascular accident (probable embolic). 4. Secondary to subcutaneous bleeding. 5. Anemia. 6. Anticoagulation (Eliquis). PROCEDURE: 1. Exploration of the left chest wound with wide and deep excision 2 x 7 cm. 2. Control of subcutaneous and pectoralis muscle bleeding. 3. Intermediate layered skin closure 8 cm. OPERATIVE INDICATION: The patient is a 58-year-old male who had a recent onset of what appeared to be embolic occipital infarcts without an obvious source of the embolus. He has had an echocardiogram, is on Eliquis for this problem and had placement of a loop recorder in the left anterior chest wall by Dr. Dara Trejo from Cardiology to evaluate arrhythmia as a possible cause of this problem. Following placement of the loop recorder and discharge home, the patient started bleeding heavily. Came to the hospital and had a 4 hemoglobin gram drop of blood requiring transfusion. His hemoglobin went from 14.7 to 10. His Eliquis was discontinued and local wound care was provided and at present, the patient is to be brought to the operating room for wide local excision and control of the bleeding and possible culture to rule out infection. Risks, benefits and alternatives with their anticipated outcomes were discussed with the patient and he signs the informed consent. OPERATIVE NOTE: The patient is brought to the operating room, is identified by his wrist band, undergoes appropriate time-out procedure and is placed on the table in a supine manner. Following light intravenous analgesia and oxygenation monitoring by the anesthesiologist, the anterior chest wall is exposed. The dressings removed. The packings and bloody gauze all cleared and the area is electrically clipped to remove adjacent hair and prepped with Betadine, then aseptically draped. Field block insertion of bupivacaine 0.5% is employed (18 mL) and once good infiltration is employed, an elliptical incision vertically to excise the entire wound is performed down to the subcutaneous tissues and the pectoralis fascia below. Hemostasis is confirmed inside the subcutaneous wound. Multiple blood clots are removed and cultures are taken and the pectoralis major fascia is seen to have a small interruption at the site of the loop recorder and may have been incurred at the time of the insertion. The patient's anticoagulation completing the problem and the patient continued to lose blood until bleeding has now stopped. The wound is now approximated with interrupted 3-0 Polysorb suture and the skin closed with retention sutures of 2-0 Prolene. The wound is packed with Iodoform gauze (one quarter inch) and a dry dressing placed over same. Tegaderm is placed over the dressing and the patient is awakened, transported to the recovery room in a satisfactory condition. Sponge, instrument and suture count are verified as correct at the end of the procedure. Estimated blood loss during this procedure is less than 10 mL of blood. This dictation will be electronically signed without being read. Ramana Lange MD
== END 2018-08-30 18:32 | disposition home or self-care (01) | DRG 981 ==
LOC: ED 07:58 → ERH 10:58 → 2RNO 17:07 → OBSVTOIN 08-27 11:53 → 5RSO 08-29 12:29
PROVIDERS: ADMIT Internal Medicine; ATTEND Internal Medicine
PROC: 30233K1 Transfusion of Nonautologous Frozen Plasma into Peripheral Vein, Percutaneous Approach (ICD-10-PCS; 2018-08-28)
PROC: 0WB80ZZ Excision of Chest Wall, Open Approach (ICD-10-PCS; 2018-08-28)
PROC: 0WJ80ZZ Inspection of Chest Wall, Open Approach (ICD-10-PCS; principal; 2018-08-28 12:45)
PROC: 0HC5XZZ Extirpation of Matter from Chest Skin, External Approach (ICD-10-PCS; 2018-08-28 12:45)
DX: L76.22 Postprocedural hemorrhage of skin and subcutaneous tissue following other procedure (principal); I63.40 Cerebral infarction due to embolism of unspecified cerebral artery; D68.59 Other primary thrombophilia; D62 Acute posthemorrhagic anemia; Y84.8 Other medical procedures as the cause of abnormal reaction of the patient, or of later complication, without mention of misadventure at the time of the procedure; Y71.0 Diagnostic and monitoring cardiovascular devices associated with adverse incidents; I65.29 Occlusion and stenosis of unspecified carotid artery; I10 Essential (primary) hypertension; K21.9 Gastro-esophageal reflux disease without esophagitis; F17.290 Nicotine dependence, other tobacco product, uncomplicated; Z79.01 Long term (current) use of anticoagulants; Z86.73 Personal history of transient ischemic attack (TIA), and cerebral infarction without residual deficits; I25.10 Atherosclerotic heart disease of native coronary artery without angina pectoris

== ENCOUNTER 2019-04-11 14:06 | Inpatient (IN) | payer BC ==
[2019-04-11 14:12] VITALS: BMI 26.6
--- NOTE | 2019-04-11 14:55 | ED PDOC ---
Arrival/HPI - General Chief Complaint: Dizziness/Lightheaded Historian: Patient - History of Present Illness Narrative History of Present Illness (Text): 04/11/19 14:51 A 59 year old male, whose past medical history includes cerebellar embolic stroke, blood clots to right leg, and GERD, presents to the emergency department sent by Dr. Ricketts for stroke evaluation. Patient reports has been experiencing symptoms of headache since yesterday. 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 Patient reports taking Tylenol for the pain to no relief. Patient notes Dr. Ricketts sent him to ER to get an MRI and notes he is currently on coumadin. Patient does not exhibit any stroke symptoms. Patient denies any fever, chills, shortness of breath, chest pain, diarrhea, nausea, vomiting, urinary symptoms, back pain, neck pain, dizziness, or any other complaints. PMD: Dr. 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) Past Medical History - Provider Review Nursing Documentation Reviewed: Yes Primary Care Provider: Carri Ricketts - Infectious Disease Hx of Infectious Diseases: None - Cardiac Hx Cardiac Disorders: No Other/Comment: Loop Recorder - Pulmonary Hx Respiratory Disorders: No - Neurological Hx Neurological Disorder: Yes HX Cerebrovascular Accident: Yes (hemorragic stroke) Other/Comment: ringing in ears - HEENT Hx HEENT Disorder: No - Renal Hx Renal Disorder: No - Endocrine/Metabolic Hx Endocrine Disorders: No - Hematological/Oncological Hx Blood Disorders: No - Integumentary Hx Dermatological Disorder: No - Musculoskeletal/Rheumatological Hx Musculoskeletal Disorders: No - Gastrointestinal Hx Gastrointestinal Disorders: No - Genitourinary/Gynecological Hx Genitourinary Disorders: No - Psychiatric Hx Psychophysiologic Disorder: No Hx Substance Use: No - Surgical History Hx Amputation: No Hx Appendectomy: No Hx Cardiac Catheterization: No Hx Cholecystectomy: No Hx Coronary Stent: No Hx Gastric Bypass Surgery: No Hx Hysterectomy: No Hx Joint Replacement: No Hx Kidney Transplant: No Hx Liver Transplant: No Hx Mastectomy: No Hx Musculoskeletal Surgery: No Hx Open Heart Surgery: No Hx Orthopedic Surgery: No Hx Splenectomy: No Hx Valve Replacement: No - Anesthesia Hx Anesthesia: No Family/Social History - Physician Review Nursing Documentation Reviewed: Yes Family/Social History: No Known Family HX Smoking Status: Never Smoked Hx Alcohol Use: Yes (social) Frequency of alcohol use: Socially Hx Substance Use: No Allergies/Home Meds Allergies/Adverse Reactions: Allergies seasonal Allergy (Uncoded 04/11/19 15:30) ITCHING Review of Systems - Physician Review All systems were reviewed & negative as marked: Yes - Review of Systems Constitutional: absent: Fevers, Other (chills) Respiratory: absent: SOB Cardiovascular: absent: Chest Pain Gastrointestinal: absent: Diarrhea, Nausea, Vomiting Genitourinary Male: absent: Urinary Output Changes Musculoskeletal: absent: Back Pain, Neck Pain Neurological: Headache. absent: Dizziness Physical Exam Vital Signs Reviewed: Yes Vital Signs Temp Pulse Resp BP Pulse Ox 04/11/19 14:09 97.9 F 88 18 138/84 99 Temperature: Afebrile Blood Pressure: Normal Pulse: Regular Respiratory Rate: Normal Appearance: Positive for: Well-Appearing, Non-Toxic Pain Distress: None Mental Status: Positive for: Alert and Oriented X 3 Finger Stick Blood Glucose: 89 - Systems Exam Head: Present: Atraumatic, Normocephalic Pupils: Present: PERRL Extroacular Muscles: Present: EOMI Conjunctiva: Present: Normal Respiratory/Chest: Present: Clear to Auscultation, Good Air Exchange. No: Respiratory Distress, Accessory Muscle Use Cardiovascular: Present: Regular Rate and Rhythm, Normal S1, S2. No: Murmurs Abdomen: No: Tenderness, Distention, Peritoneal Signs Upper Extremity: Present: Normal Inspection. No: Cyanosis, Edema Lower Extremity: Present: Normal Inspection. No: Edema Neurological: Present: GCS=15, CN II-XII Intact, Speech Normal Skin: Present: Warm, Dry, Normal Color. No: Rashes Psychiatric: Present: Alert, Oriented x 3, Normal Insight, Normal Concentration Medical Decision Making ED Course and Treatment: 04/11/19 14:53 Impression: 59 year old male presenting to the emergency room sent by Dr. Ricketts for stroke evaluation. Plan: -- Head CT without contrast -- CMP -- Troponin -- CBC -- COAGs -- Urinalysis -- Reassess and disposition Prior Visits: Notes and results from previous visits were reviewed. Progress Notes: 04/11/19 16:[address] Ricketts who accepts admission and requests Dr. Jimenez for consult. - RAD Interpretation Narrative RAD Interpretations (Text): 04/11/19 17:05 Procedure: Head CT Dictator: Tripp Thornton Impression: Chronic infarcts in the cerebellar hemispheres and chronic lacunar infarcts in the both thalami. No acute intracranial findings. Publicity Writer: Radiologist NIHSS Scale ([place]) Time Performed: 14:50 - How Severe is the Stoke Baseline Level of Consciousness: 0=Alert LOC to Questions: 0=Both comments correct LOC to commands: 0=Obeys both correctly Best Gaze: 0=Normal Visual: 0=No visual loss Facial: 0=Normal Motor Arm - Left: 0=No drift Motor Arm - Right: 0=No drift Motor Leg - Left: 0=No drift Motor Leg - Right: 0=No drift Limb Ataxia: 0=Absent Sensory: 0=Normal Best Language: 0=No aphasia Dysarthia: 0=Normal articulation Extinction & Inattention (Neglect): 0=Normal, no object Score: 0 Risk Level: No Stroke Risk - Scribe Statement The provider has reviewed the documentation as recorded by the Scribdanilo Borges All medical record entries made by the Scribe were at my direction and persona lly dictated by me. I have reviewed the chart and agree that the record accurately reflects my personal performance of the history, physical exam, medical decision making, and the department course for this patient. I have also personally directed, reviewed, and agree with the discharge instructions and disposition. Disposition/Present on Arrival - Present on Arrival History of DVT/PE: No History of Uncontrolled Diabetes: No Urinary Catheter: No History of Decub. Ulcer: No History Surgical Site Infection Following: None - Disposition
--- NOTE | 2019-04-11 15:50 | CT ---
Date of service: 04/11/2019 PROCEDURE: CT HEAD WITHOUT CONTRAST. HISTORY: headache COMPARISON: 08/24/2018 TECHNIQUE: Axial computed tomography images were obtained through the head/brain without intravenous contrast. Radiation dose: Total exam DLP = 915.6 mGy-cm. This CT exam was performed using one or more of the following dose reduction techniques: Automated exposure control, adjustment of the mA and/or kV according to patient size, and/or use of iterative reconstruction technique. FINDINGS: HEMORRHAGE: No intracranial hemorrhage. BRAIN: No mass effect or edema. Chronic infarcts in the cerebellar hemispheres and chronic lacunar infarcts in both thalami. VENTRICLES: Unremarkable. No hydrocephalus. CALVARIUM: Unremarkable. PARANASAL SINUSES: Unremarkable as visualized. No significant inflammatory changes. MASTOID AIR CELLS: Unremarkable as visualized. No inflammatory changes. OTHER FINDINGS: None. IMPRESSION: Chronic infarcts in the cerebellar hemispheres and chronic lacunar infarcts in both thalami. No acute intracranial findings
[2019-04-11 16:26] LABS: BASO # 0.03 K/mm3 (0.0-2.0); BASO % 0.4 % (0.0-3.0); EOS # 0.1 (0.0-0.7); EOS % 1.1 % (1.5-5.0); HEMOGLOBIN 12.2 g/dL (14.0-18.0); INR 2.61; LYMPH # 2.2 (1.2-3.4); LYMPH % 30.1 % (22.0-35.0); MEAN CELL VOLUME 90.2 fl (80.0-105.0); MEAN CORPUSCULAR HEMOGLOBIN 29.1 pg (25.0-35.0); MEAN CORPUSCULAR HGB CONC 32.3 g/dl (31.0-37.0); MEAN PLATELET VOLUME 11.9 fl (7.0-11.0); MONO # 0.4 (0.1-0.6); MONO % 5.2 % (1.0-6.0); PARTIAL THROMBOPLASTIN TIME 40.6 Seconds (26.9-38.3); RBC 4.19 10^6/uL (3.5-6.1); RED CELL DISTRIBUTION WIDTH 14.7 % (11.5-14.5); WHITE BLOOD COUNT 7.4 10^3/uL (4.5-11.0)
[2019-04-11 16:39] LABS: URINE APPEARANCE CLEAR (CLEAR); URINE BILIRUBIN NEGATIVE (NEGATIVE); URINE BLOOD NEGATIVE (NEGATIVE); URINE COLOR LIGHT YELLOW (YELLOW); URINE GLUCOSE (UA) NEGATIVE (NEGATIVE); URINE LEUKOCYTE ESTERASE NEGATIVE Leu/uL (NEGATIVE); URINE PROTEIN TRACE mg/dL (<30 mg/dL)
[2019-04-11 16:40] LABS: ALB/GLOB RATIO 1.5 (1.1-1.8); ALBUMIN 4.1 g/dL (3.0-4.8); AST/SGOT 38 U/L (17-59); BLOOD UREA NITROGEN 21 mg/dL (7-21); CALCIUM 9.2 mg/dL (8.4-10.5); GFR NON-AFRICAN AMERICAN > 60
[2019-04-11 16:41] LABS: ALT/SGPT 34 U/L (7-56); TROPONIN I < 0.01 ng/mL
--- NOTE | 2019-04-12 00:41 | HP ---
DATE OF EXAM: 04/11/2019 HISTORY OF PRESENT ILLNESS: The patient is 59 years old, known to me from multiple previous admissions. The patient stated he was at work and started to feel dizzy and heaviness in the back of his head, so he got alarmed because he had similar dizzy feeling when he had a stroke, so he came to the emergency room for further evaluation. The patient still has some headache, but dizziness has improved. Upon arrival, his blood pressure was 142/92. He was given Norvasc. Currently, blood pressure is 136/84. PAST MEDICAL HISTORY: Significant for; 1. Hypertension. 2. History of recent embolic stroke. 3. Status post loop recorder placement and bleeding from that site. 4. Anemia. PAST SURGICAL HISTORY: History of placement of loop recorder. ALLERGIES: HE IS NOT ALLERGIC TO ANY MEDICATION. MEDICATIONS AT HOME: He is on folic acid 1 mg daily, Norvasc 5 mg daily, and Coumadin 2 mg daily. SOCIAL HISTORY: He lives with his . Denies smoking, drinking alcohol. 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 PHYSICAL EXAMINATION GENERAL: He is awake and alert, able to communicate. VITAL SIGNS: He is afebrile, pulse 65, respirations 16, and blood pressure 136/84. LUNGS: Bilateral fair airflow. No rhonchi or crackle. HEART: S1 and S2 audible. ABDOMEN: Soft, nontender. No rebound, no guarding. NEUROLOGIC: The patient is awake and alert, able to communicate. LABORATORY EXAMINATION: WBC of 7.4, hemoglobin 12, hematocrit 37, platelets 159. PT 29 and INR 2.61. Chemistries; sodium 140, potassium 4.1, chloride 105, CO2 of 28, BUN 21, creatinine 1, blood sugar 84. Urine shows trace ketones and trace protein. He had CT scan of the head done that is unremarkable. ASSESSMENT: 1. Headache with dizziness, probably secondary to hypertension. 2. History of old cerebellar infarct and chronic lacunar infarct in both thalami. PLAN: We will continue the patient on current medication. Continue on folic acid 1 mg daily and amlodipine 5 mg daily. We will continue to monitor blood pressure and Tylenol as needed. If he remains stable, possible discharge. Carri Ricketts MD [facility] # [id number]
[2019-04-12 06:23] LABS: HDL CHOLESTEROL 35 mg/dL (29-60)
[2019-04-12 06:29] LABS: LDL CHOLESTEROL 83 mg/dL (0-129)
[2019-04-12 07:01] VITALS: RESP 18
--- NOTE | 2019-04-12 11:47 | CARD ---
APPROVED REPORT Date of service: 04/11/2019 EKG Measurement Heart [id number] <Conclusion> Normal sinus rhythm Normal ECG
--- NOTE | 2019-04-12 18:41 | CON ---
DATE: 04/12/2019 HISTORY OF PRESENT ILLNESS: This is a 59-year-old male with a past medical history of hypertension, recent embolic stroke in 2018, and is status post a loop recorder, and anemia, came here with the complaint of feeling dizzy and heaviness in the back of the head. He got alarmed because on a previous stoke he had similar symptoms. He also complained of having stress at home because of father's sickness. PAST MEDICAL HISTORY: Hypertension, stroke, status post loop recorder and anemia. ALLERGIES: NOT ALLERGIC TO ANY MEDICATION. MEDICATIONS: Norvasc, Coumadin and folic acid. REVIEW OF SYSTEMS: A 10-point review of systems was negative. PHYSICAL EXAMINATION: HEENT: Normocephalic and atraumatic. NECK: Supple. NEUROLOGIC: Awake, alert and orientated x3. No aphasia. Cranial nerves II through XII were tested. Pupils reactive. EOM intact. Visual hernandez full. No facial asymmetry. Tongue is midline. Motor examination; moves all the extremities equally. Tone normal. Deep tendon reflexes 1+. Both plantars are downgoing. Sensory appears intact. Cerebellar gait normal. IMPRESSION: Dizziness, vertigo and also headache at the back of the head and also has a history of old cerebellar and lacunar telemetry infarct. PLAN: We will do the MRI of the head with and without gadolinium. Continue present medication. We will follow up. Jim Jimenez MD
[2019-04-12] MEDS ORDERED: Gadodiamide 287 MG/ML VIAL (15ML) IV ONE (22:36)
--- NOTE | 2019-04-13 01:12 | DS ---
HISTORY OF PRESENT ILLNESS: The patient is 59 years old, seen and examined. He states he is doing a lot better. He had a little pressure in the back of his head; otherwise, he is well. He is eating and tolerating. PHYSICAL EXAMINATION: VITAL SIGNS: The patient is afebrile. Pulse 64, respiration 18 and blood pressure 117/72. LUNGS: Bilateral fair airflow. No rhonchi or crackle. HEART: S1 and S2, audible. ABDOMEN: Soft and nontender. No rebound. No guarding. NEUROLOGIC: The patient is awake and alert, able to communicate. EXTREMITIES: Bilateral leg no edema. NEUROLOGIC: No motor or sensory deficit. LABORATORY DATA: His triglycerides 82, total cholesterol 138, LDL is 83 and HDL is 35. Urinalysis is unremarkable. ASSESSMENT: 1. Headache and dizziness, probably secondary to hypertension. 2. History of embolic stroke. 3. History of coagulopathy. 4. Hyperlipidemia. PLAN: Currently, the patient is on Norvasc 5 mg daily. He will get clonidine 2 mg today and folic acid 1 mg daily. The patient is going for MRI of the brain. If it is negative, he will be discharged home today. He is advised to instead of taking Norvasc intermittently, he should be on 2.5 mg daily. He will follow up in office in 2 weeks. He will follow up with Dr. Rudolph for Coumadin monitoring. Carri Ricketts MD
[2019-04-13 08:35] VITALS: BP 120/73; PULSE 62; TEMP 97.8; O2SAT 99
--- NOTE | 2019-04-13 11:59 | MRI ---
Date of service: 04/12/2019 PROCEDURE: MRI BRAIN WITH AND WITHOUT CONTRAST HISTORY: R/O CVA COMPARISON: None available. TECHNIQUE: Multiplanar, multisequence MR images of the brain were obtained with and without intravenous contrast enhancement. 15 cc of Omniscan FINDINGS: HEMORRHAGE: None DWI: No evidence of an acute or early subacute infarction. BRAIN PARENCHYMA: No mass,mass effect or edema. Chronic encephalomalacia is seen in the cerebellar hemispheres right greater than left. Old lacunar infarcts are seen in the thalami bilaterally. There are no acute infarcts. ENHANCEMENT: No abnormal intracranial enhancement. VENTRICLES: Unremarkable. No hydrocephalus. CRANIUM: Unremarkable. ORBITS: Grossly unremarkable. PARANASAL SINUSES/MASTOIDS: Clear VASCULAR SYSTEM: Skull base flow voids intact. OTHER FINDINGS: The report concurs with the preliminary [facility] report. IMPRESSION: No acute intracranial findings.
--- NOTE | 2019-04-13 22:46 | DS ---
HISTORY OF PRESENT ILLNESS: The patient is 59-year-old, seen and examined. He came with headache, pressure in the back of the neck and he was feeling dizzy. He was very concerned because he has cerebellar stroke in the past, so he came to emergency room for further evaluation. He was watched overnight, doing well. PHYSICAL EXAMINATION: GENERAL: He is awake and alert; able to communicate. VITAL SIGNS: He is afebrile, pulse 62, respiration 18, and blood pressure 120/73. LUNGS: Bilateral fair airflow. No rhonchi or crackle. HEART: S1 and S2 audible. ABDOMEN: Soft and nontender. No rebound. No guarding. NEUROLOGIC: The patient is awake and alert; able to communicate. LABORATORY DATA: He has had MRI of the brain, his results are pending. MEDICATIONS: The patient was advised to take Norvasc 5 mg daily, but they have been monitoring the blood pressure and has been running okay, so Norvasc was discontinued. ASSESSMENT: 1. Headache and neck pain secondary to hypertension. 2. History of cerebellar and thalamic stroke in the past. 3. History of loop recorder, but it was eventually removed because the patient started to have bleeding at the site of insertion. PLAN: The patient is being discharged home. He will continue his Coumadin 2 mg daily, folic acid 1 mg daily, and amlodipine 5 mg daily. He will followup with Dr. Rudolph to monitor his PT/INR and followup with me for blood pressure monitoring. Carri Ricketts MD
== END 2019-04-13 15:23 | disposition home or self-care (01) | DRG 305 ==
LOC: ED 14:06 → ERH 16:07 → 3RSO 18:04
PROVIDERS: ADMIT Internal Medicine; ATTEND Internal Medicine
DX: I10 Essential (primary) hypertension (principal); R51 Headache; Z86.73 Personal history of transient ischemic attack (TIA), and cerebral infarction without residual deficits; Z79.01 Long term (current) use of anticoagulants; Z79.899 Other long term (current) drug therapy; E78.5 Hyperlipidemia, unspecified; K21.9 Gastro-esophageal reflux disease without esophagitis; D64.9 Anemia, unspecified; M54.2 Cervicalgia